=== PATIENT | female | born 1945 ===

== ENCOUNTER 2017-04-29 16:32 | Inpatient (IN) ==
[2017-04-29] MEDS ORDERED: PANTOPRAZOLE 40 MG VIAL IV STA (16:55)
[2017-04-29] MEDS ORDERED: ALUM/MAG/SIMETH/LIDO VISC 1:1 30 ML BOTTLE PO STA (16:55)
--- NOTE | 2017-04-29 17:00 | Emergency Department Note ---
Arrival - Arrival Chief Complaint: Chest Pain Stated Complaint: TRANSFER FROM [facility], [facility] ED Nursing Triage Note: PT TRANSFERRED FROM [facility] FOR EVALUATION OF ELEVATED TROPONIN (0.693) PT C/O CHEST PAIN SINCE LAST NIGHT THAT RADIATED INTO BOTH ARMS. Mode of Arrival: Stretcher Limitations: No Limitations Source: Patient Time Seen by Provider: 04/29/17 16:52 - History of Present Illness HPI Narrative: This 71-year-old female presents on transfer from [facility] where she presented with intermittent retrosternal chest pain and midepigastric pain radiating into both arms and necks associated with mild shortness of breath over the night. She presented to the [facility] ER where she was treated with aspirin, Nitrol paste, Lopressor, and Lovenox with amelioration the pain such that on presentation now she is pain-free. The patient has a history of being followed by Dr. Guido in the past for which she states she was told was anxiety related chest pain and never had a cardiac catheterization. She presents on transfer because of elevated troponin of 0.693. Currently she is free of symptoms. Onset (ago): hour(s) (Patient presents 18 hours post onset of symptoms) Allergies/Adverse Reactions: Allergies Allergy/AdvReac Type Severity Reaction Status Date / Time No Known Allergies Allergy Verified 04/29/17 16:45 Home Medications: Home Medications Medication Instructions Recorded Confirmed Type Aspirin [Ecotrin] 81 mg PO BEDTIME 01/26/16 04/29/17 History Cholecalciferol [Vitamin D3] 1,000 unit PO DAILY 01/26/16 04/29/17 History Gabapentin 100 mg PO QPM 01/26/16 04/29/17 History Levothyroxine Tab [Synthroid Tab] 75 mcg PO DAILY 01/26/16 04/29/17 History Lisinopril 40 mg PO DAILY 01/26/16 04/29/17 History Pravastatin [Pravachol] 40 mg PO BEDTIME 01/26/16 04/29/17 History Vit A/C/E AC/Znox/Cupric Oxide 2 each PO BID 01/26/16 04/29/17 History [Eye Vitamin-Minerals Tablet] glipiZIDE [Glipizide Xl] 2.5 mg PO DAILY 01/26/16 04/29/17 History hydroCHLOROthiazide 12.5 mg PO DAILY 01/26/16 04/29/17 History [Hydrochlorothiazide] metFORMIN [Glucophage] 500 mg PO BID 01/26/16 04/29/17 History Raloxifene [Evista] 60 mg PO DAILY 04/09/16 04/29/17 History Cyanocobalamin (Vitamin B-12) 1,000 mcg PO DAILY 04/29/17 04/29/17 History [Vitamin B-12] Naproxen [Naproxen Tab] 500 mg PO BID PRN 04/29/17 04/29/17 History Review of System - Review of System 12 point system: reviewed and no additional remarkable complaints except as stated - Review of System Constitutional: Present: as per HPI Respiratory: Present: as per HPI Cardiovascular: Present: as per HPI Gastrointestinal: Present: as per HPI Medical,Surgical,& Family Hx - Medical History Cardio: History of: Hypertension, Cardiovascular Problems (dr wu) Neurology: History of: Peripheral Neuropathy (feet) No history of: Seizures HEENT: History of: Eye Problem (glasses) Endocrine: History of: Diabetes Mellitus (NIDDM), Dyslipidemia Rheumatology: History of;: Rheumatoid Arthritis (left knee) Genitourinary: Comment Only: Recurring Urinary Tract Infections (pt has uti currently on antibiotics) Gastrointestinal: History of: GI Problems (screening) Musculoskeletal: History of: Musculoskeletal Problems (right hand tendonitis) - Surgical History Abdominal Surgeries: Surgical HX of: Cholecystectomy (1994), Colonoscopy Reproductive Surgeries: Surgical HX of;: Tubal Ligation - Social History Smoking Status: Never smoker Frequency of Alcohol Use: None Type of Drug Use: None Exam Physical Examination: GENERAL: Well developed, well nourished female in no acute distress. HEENT: Normocephalic. No trauma. Moist mucous membranes. EOMI. PERRLA. ENT NML NECK: Supple. No adenopathy. CARDIAC: Regular. No murmurs. Heart rate 76 CHEST: Clear to auscultation. No respiratory distress. O2 sat 96% ABDOMEN: Soft. Nontender. Active bowel sounds. EXTREMITIES: No trauma. Normal ROM. No pedal edema. SKIN: No diaphoresis. No rash. NEURO: Alert. Neuro intact no focal deficits. Vital Signs: Vital Signs Temperature 97.6 F 04/29/17 16:32 Pulse Rate 76 04/29/17 16:32 Respiratory Rate 18 04/29/17 16:56 Blood Pressure 144/83 04/29/17 16:32 O2 Sat by Pulse Oximetry 96 04/29/17 16:32 Course - Reevaluation(s) Reevaluation #1: I have discussed with patient and family the need for hospitalization to further evaluate her situation. - Consultations Consultation #1: Discussed with Dr. Valle who will see in the emergency room. Consultation #2: Dr. Valle to admit for catheterization in the morning. Results - Labs Labs: Lab per [facility] CK total 144 CK, CK-MB 4.0, troponin 0.693, BNP 366, glucose 136 , BUN 14, creatinine 0.8, potassium 4.2, sodium 140, white count 7400, hematocrit 40, normal clotting, d-dimer negative. Laboratory here is notable for significant bump in MD to 10.9 and troponin to 2.2. - Impressions EKG per [facility] sinus rhythm at 75 with normal [place] interval and QRS duration. Diffuse ST flattening. No acute injury pattern noted. EKG here: Sinus rhythm at 72 with normal [place] interval and QRS duration. Diffuse ST flattening but significant progression of T-wave inversion leads I and aVL. No acute injury pattern noted. - Diagnostic Findings Procedure: Chest x-ray: image reviewed by me, report reviewed by me (Negative chest) Disposition Clinical Impression: Non-STEMI PA Case discussed with: patient, patient's family Disposition: Still a Patient Condition: Guarded Time of Disposition: 18:43
[2017-04-29] MEDS ORDERED: PANTOPRAZOLE 40 MG VIAL IV ONE (17:07)
[2017-04-29] MEDS ORDERED: ALUM/MAG/SIMETH/LIDO VISC 1:1 30 ML BOTTLE PO ONE (17:07)
--- NOTE | 2017-04-29 17:19 | XRay Report ---
History is short of breath Comparison 04/29/2017 The heart is normal in size. The lungs are clear. Impression: No acute pathology seen. PROCEDURE INTERPRETED AT [facility] DEPARTMENT OF RADIOLOGY Final Report Signed by: Dr. Mare Wilson
--- NOTE | 2017-04-29 17:34 | EKG Report ---
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
[2017-04-29 18:05] LABS: CKMB % 5.4 %
[2017-04-29 18:07] LABS: Troponin I Only 2.2 NG/ML (0.00-0.045)
[2017-04-29] MEDS ORDERED: ONDANSETRON 4 MG/2 ML VIAL IV PRN (18:45)
[2017-04-29] MEDS ORDERED: HYDROmorphone 2 MG/1 ML VIAL IV PRN (18:45)
[2017-04-29] MEDS ORDERED: DEXTROSE 50% 25 GM/50 ML VIAL IV PRN (18:45)
[2017-04-29] MEDS ORDERED: GLUCAGON 1 MG VIAL IM PRN (18:45)
[2017-04-29] MEDS ORDERED: MAGNESIUM SULF RIDER 4 GM in PREMIX 1 EACH IV PRN (19:42)
[2017-04-29] MEDS ORDERED: ZALEPLON 5 MG CAPSULE PO PRN (19:42)
[2017-04-29] MEDS ORDERED: MAGNESIUM SULF RIDER 2 GM in PREMIX 1 EACH IV PRN (19:42)
[2017-04-29] MEDS ORDERED: ASPIRIN CHEW 81 MG TABLET PO ONE (19:52)
[2017-04-29] MEDS ORDERED: POTASSIUM CHLORIDE RIDER 10 MEQ in PREMIX 1 EACH IV PRN (19:53)
[2017-04-29] MEDS ORDERED: diphenhydrAMINE CAP 25 MG CAPSULE PO ONE (19:53)
[2017-04-29] MEDS ORDERED: DIAZEPAM 5 MG TABLET PO ONE (19:53)
--- NOTE | 2017-04-29 20:03 | Cardiology History & Physical ---
Assessment and Plan - Time spent with patient Time spent with patient: Greater than 30 minutes (1) Non-STEMI (non-ST elevated myocardial infarction) Status: Acute Assessment and plan: Given her chest pain and rising troponin, in addition to EKG changes, she has had a non-STEMI Plan/recommendation: Aspirin 325 mg 1 chewed now then 81 mg every morning Lovenox 60 mg subcu now and twice daily EKG every morning 3 Serial cardiac isoenzymes Add a bebb-[id number] Adding Nitropaste Continue proton pump inhibitor Precath orders Have Dr. Holden Lewis to do a heart cath on the patient and possible intervention in the a.m. Hold metformin Sliding-scale insulin Tylenol for headache which is probably due to the Nitropaste Recheck lipid profile in the a.m. Try to optimize on treatment Further plans depend on the results of the heart cath. The above was discussed with the patient and her . They voiced understanding and agree with the plan. Current Visit: Yes (2) Diabetes Status: Acute Current Visit: Yes (3) Hypertension Status: Acute Current Visit: Yes (4) Hypercholesterolemia Status: Acute Current Visit: Yes (5) Family history of coronary artery disease Status: Acute Current Visit: Yes (6) Elevated troponin Status: Acute Current Visit: Yes (7) Chest pain in adult Status: Acute Current Visit: Yes History of Present Illness Chief complaint: "I had bad heartburn in the upper chest for several minutes", with +cie"s History of present illness: Ms. Aviles is a 71 year old female PCP: [facility], sometimes sees Dr. Deborah Mercedes Machine Ii Trimmer: None-to be Dr. murphy Patient is 71. She had heartburn today. It did not go away easily. Nothing brought it on. Mylanta may or may not of help. It persisted so she came to [facility]. It was a pressure. It is in her upper chest and throat. Went to the back of her neck. It lasts for several minutes. Her EKG showed some changes of ischemia. Her troponin was 0.692. She was sent here for further evaluation. No associated shortness breath or diaphoresis. She did have associated nausea. Sometimes she has dysphagia to 1 pill. No odynophagia or GE reflux No bleeding in the pt's bowels, urine, or coughing up blood. No planned surgery for the next year. No contraindication to anticoagulation for a year. Past medical history Diabetes Hypertension High cholesterol-is on pravastatin Does not smoke cigarettes or drink alcohol There is a family history of coronary disease in her father and her sister. Also some diabetes SPH: Yes, yes, yes and yes. OG Home Medications Medication Instructions Recorded Confirmed Type Aspirin [Ecotrin] 81 mg PO BEDTIME 01/26/16 04/29/17 History Cholecalciferol [Vitamin D3] 1,000 unit PO DAILY 01/26/16 04/29/17 History Gabapentin 100 mg PO QPM 01/26/16 04/29/17 History Levothyroxine Tab [Synthroid Tab] 75 mcg PO DAILY 01/26/16 04/29/17 History Lisinopril 40 mg PO DAILY 01/26/16 04/29/17 History Pravastatin [Pravachol] 40 mg PO BEDTIME 01/26/16 04/29/17 History Vit A/C/E AC/Znox/Cupric Oxide 2 each PO BID 01/26/16 04/29/17 History [Eye Vitamin-Minerals Tablet] glipiZIDE [Glipizide Xl] 2.5 mg PO DAILY 01/26/16 04/29/17 History hydroCHLOROthiazide 12.5 mg PO DAILY 01/26/16 04/29/17 History [Hydrochlorothiazide] metFORMIN [Glucophage] 500 mg PO BID 01/26/16 04/29/17 History Raloxifene [Evista] 60 mg PO DAILY 04/09/16 04/29/17 History Cyanocobalamin (Vitamin B-12) 1,000 mcg PO DAILY 04/29/17 04/29/17 History [Vitamin B-12] Naproxen [Naproxen Tab] 500 mg PO BID PRN 04/29/17 04/29/17 History Allergies Allergy/AdvReac Type Severity Reaction Status Date / Time No Known Allergies Allergy Verified 04/29/17 16:45 12 point system: reviewed and no additional remarkable complaints except as stated (A 12 point review of systems is negative except for as mentioned in HPI. ) Medical,Surgical,& Family Hx - Medical History Cardio: History of: Hypertension, Cardiovascular Problems (dr wu) Neurology: History of: Peripheral Neuropathy (feet) No history of: Seizures HEENT: History of: Eye Problem (glasses) Endocrine: History of: Diabetes Mellitus (NIDDM), Dyslipidemia Rheumatology: History of;: Rheumatoid Arthritis (left knee) Genitourinary: Comment Only: Recurring Urinary Tract Infections (pt has uti currently on antibiotics) Gastrointestinal: History of: GI Problems (screening) Musculoskeletal: History of: Musculoskeletal Problems (right hand tendonitis) - Surgical History Abdominal Surgeries: Surgical HX of: Cholecystectomy (1994), Colonoscopy Reproductive Surgeries: Surgical HX of;: Tubal Ligation - Social History Smoking Status: Never smoker Frequency of Alcohol Use: None Type of Drug Use: None Cardiology Physical Exam - Constitutional Vitals: Vital Signs Temp Pulse Resp BP Pulse Ox 97.6 F 74 13 135/75 100 04/29/17 16:32 04/29/17 19:15 04/29/17 19:15 04/29/17 19:15 04/29/17 19:15 Intake and Output 04/29/17 04/29/17 04/29/17 07:59 15:59 23:59 Other: Weight 64 kg Patient Weight 04/29/17 23:59 Weight 64 kg Exam: HEENT: Pupils equal, reactive to light and accommodation Neck: NoJVD or bruit Lungs clear to auscultation Heart: Regular rhythm rate with normal S1 and S2. Apical S4 Abdomen: No hepatosplenomegaly Spine/extremities: No clubbing, cyanosis, or edema Neuro: Nonfocal Psych: No depression or anxiety Femoral pulses are 4+. Foot pulses are 3+. Result/EKG - Labs Lab Results: I have reviewed the past 24 hour labs Labs: Laboratory Results - last 24 hr 04/29/17 17:24 Total Creatine Kinase 202 H CK-MB (CK-2) 10.9 H CK and CKMB Interp 5.4 Troponin I 2.200 H - Diagnostic Findings Procedure: Chest x-ray: report reviewed by me (Unremarkable) - EKG EKG results: interpreted by me
--- NOTE | 2017-04-29 20:09 | History and Physical Update ---
Sedation H&P Update - History and Physical H&P was reviewed, the patient examined and there: are no changes in the patients condition since last H&P was completed. - Dictation Physical: refer to H&P completed by admitting physician - Physical Exam Mental Status: alert and oriented Heart: regular rate and rhythm Lung: clear to auscultation Abdomen: within normal limits Vitals: within normal limits - Sedation Plan for Sedation: minimal Patient Consent: Procedure disscussed with patient and patinet has consented., Risks and benefits were discussed with patient,including infection,, bleeding, injury to surrounding structures, seizure, temporary nerve, Patient understands and accepts potential risks/benefits and agrees to, proceed. ASA Class: II Airway Assessment: Class II: Soft palate, uvula, fauces visible
[2017-04-29 20:47] LABS: Bilirubin,Total 0.6 MG/DL (0.2-1.0); Magnesium 2.3 MG/DL (1.8-2.4); Potassium 3.7 MMOL/L (3.5-5.1); Total Protein 7.2 G/DL (6.4-8.3)
[2017-04-29 20:50] LABS: Basophils % 0.4 % (0.0-0.8); Eosinophils # 0.1 10*3/uL (0.0-0.87); Eosinophils % 1.2 % (0.00-10.9); Hematocrit 39.6 VOL% (35.7-47.0); Hemoglobin 13.6 GM/DL (12.0-16.0); Immature Granulocytes % 0.2 %; Immature Granulocytes Absolute 0.02 #; Lymphocytes # 1.8 10*3/uL (1.4-4.0); Lymphocytes % 21.7 % (21.3-54.2); Mean Corpuscular HGB Conc 34.3 GM/DL (32-36); Mean Corpuscular Hemoglobin 31 PG (27-34); Mean Corpuscular Volume 89.4 FL (87-102); Mean Platelet Volume 10.6 FL (9.6-12.0); Monocytes # 0.6 10*3/uL (0.11-0.8); Monocytes % 7.3 % (1.7-12.7); Neutrophils # 5.7 10*3/uL (1.4-7.4); Neutrophils % 69.2 % (38.7-73.9); Platelet Count 264 T/CUMM (130-400); Red Blood Count 4.43 MC/CUMM (3.8-5.5); Red Cell Distribution Width 12.4 % (9.3-17.3); White Blood Count 8.3 T/CUMM (4-12)
[2017-04-29 21:40] LABS: CKMB % 6.1 %
[2017-04-29 21:45] LABS: Troponin I Only 3.49 NG/ML (0.00-0.045)
[2017-04-29] MEDS: ENOXAPARIN 60 MG/0.6 ML SYRINGE SUBCUT SCH (22:49)
[2017-04-29] MEDS: MULTIVITAMIN (OCUVITE) TABLET PO SCH (22:50)
[2017-04-29] MEDS: CARVEDILOL 3.125 MG TABLET PO SCH (22:52)
[2017-04-29] MEDS: SODIUM CHLORIDE 0.9% 1,000 ML IV SCH (22:52)
[2017-04-29] MEDS: PRAVASTATIN 40 MG TABLET PO SCH (22:52)
[2017-04-29] MEDS: METOCLOPRAMIDE 10 MG/2 ML VIAL IV SCH (22:53)
[2017-04-29] MEDS: ACETAMINOPHEN 325 MG TABLET PO SCH (22:54)
[2017-04-30] MEDS: INSULIN REGULAR 100 UNIT/ML SUBCUT SCH ×4 (02:26→18:34)
[2017-04-30] MEDS: NITROGLYCERIN 2% OINT 1 INCH/GM PACK TOP SCH ×4 (02:27→18:34)
[2017-04-30] MEDS: METOCLOPRAMIDE 10 MG/2 ML VIAL IV SCH ×4 (04:18→19:01)
[2017-04-30] MEDS: ACETAMINOPHEN 325 MG TABLET PO SCH ×3 (04:19→21:36)
[2017-04-30] MEDS: CARVEDILOL 3.125 MG TABLET PO SCH ×4 (04:20→21:36)
[2017-04-30 06:18] LABS: CKMB % 6.6 %
[2017-04-30 06:22] LABS: Troponin I Only 4.12 NG/ML (0.00-0.045)
[2017-04-30 06:25] LABS: Risk Ratio 4.29; VLDL CHOLESTEROL 34.6 MG/DL
[2017-04-30] MEDS ORDERED: HEPARIN/NACL 0.9% 2 UNITS/ML 1,000 ML IV ONE (06:48)
[2017-04-30] MEDS ORDERED: ENOXAPARIN 60 MG/0.6 ML SYRINGE SUBCUT SCH (07:00)
[2017-04-30] MEDS ORDERED: diphenhydrAMINE CAP 25 MG CAPSULE PO ONE (07:00)
[2017-04-30] MEDS ORDERED: DIAZEPAM 5 MG TABLET PO ONE (07:00)
[2017-04-30] MEDS: ENOXAPARIN 60 MG/0.6 ML SYRINGE SUBCUT SCH (07:11)
[2017-04-30] MEDS: ASPIRIN CHEW 81 MG TABLET PO SCH (07:12)
--- NOTE | 2017-04-30 07:30 | EKG Report ---
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
[2017-04-30] MEDS ORDERED: MIDAZOLAM 2 MG/2 ML VIAL ONE (07:43)
[2017-04-30] MEDS ORDERED: LIDOCAINE 1%/EPI INJ 20 ML VIAL ONE (07:43)
[2017-04-30] MEDS ORDERED: fentaNYL 100 MCG/2 ML VIAL ONE (07:43)
[2017-04-30] MEDS: SODIUM CHLORIDE 0.9% 1,000 ML IV SCH ×2 (07:47→09:41)
--- NOTE | 2017-04-30 07:59 | History and Physical Update ---
Sedation H&P Update - History and Physical H&P was reviewed, the patient examined and there: are no changes in the patients condition since last H&P was completed. - Dictation Physical: refer to scanned H&P - Sedation Plan for Sedation: moderate Patient Consent: Procedure disscussed with patient and patinet has consented., Risks and benefits were discussed with patient,including infection,, bleeding, injury to surrounding structures, seizure, temporary nerve, Patient understands and accepts potential risks/benefits and agrees to, proceed. ASA Class: III Airway Assessment: Class III: Soft palate, base of uvula visible
[2017-04-30] MEDS ORDERED: TIROFIBAN 5,000 MCG/100 ML PREMIX IV ONE (08:20)
[2017-04-30] MEDS ORDERED: TIROFIBAN 5,000 MCG/100 ML PREMIX IV SCH (08:29)
[2017-04-30] MEDS ORDERED: TICAGRELOR 90 MG TABLET ONE (08:32)
[2017-04-30] MEDS ORDERED: NITROGLYCERIN DRIP 50 MG/250 ML BOTTLE IV ONE (08:36)
[2017-04-30] MEDS ORDERED: RALOXIFENE 60 MG TABLET PO SCH (09:00)
--- NOTE | 2017-04-30 09:30 | Cardiac Catheterization ---
Date of Procedure:: 04/30/17 Pre-op Diagnosis: Acute coronary syndrome Post-op diagnosis: same Procedure: 76-year-old lady who presents with an acute coronary syndrome. She has unstable chest discomfort with EKG changes consistent with anterior ischemia. She is for diagnostic evaluation intervention if indicated Procedure performed: 1. Left heart catheterization 2. Coronary angiography 3. Left ventriculography 4. Percutaneous intervention to the LAD with a 2.5 x 23 mm Zions drug-eluting stent to the mid LAD with a good angiographic result 5. Percutaneous intervention of the proximal LAD with a 3.0 x 12 mm Zions drug- eluting stent to the proximal edge of the mid LAD stent with a good angiographic result 6. Percutaneous intervention to the mid right coronary artery with a 2.25 x 23 mm Zions drug-eluting stent with a good angiographic result 7. Angio-Seal closure right femoral arteriotomy site Description of procedure: After obtaining informed consent the patient brought to the Analysis Consultant of the right groin was prepped and draped in the usual sterile manner. Using intravenous sedation with anesthesia needle was inserted right femoral artery without difficulty 6 Sami sheath was positioned without difficulty. A Ave left diagnostic catheter was used to opacify the left coronary and multiple angulations. After adequate angiograms left coronary obtained this catheter was withdrawn and in a.m. Gonzalo right coronary catheter was advanced over guidewire under fluoroscopic control using her where angiography the right coronary artery was undertaken multiple views. This catheter was withdrawn and a pigtail ventriculographic catheter was advanced over guidewire under fluoroscopic control ascending aorta where it was passed across the aortic valve and ventriculography was obtained in the LEIGH projection. 35 cc of contrast were injected at 12 cc/s. After completion of ventriculography this catheter was withdrawn under hemodynamic monitoring and removed. At this point he like to proceed with percutaneous intervention A EBU 3.5 catheter was advanced over guidewire under fluoroscopic control using her where the left coronary was engaged. An 014 BMW wire was advanced to the distal LAD and a 2.0 x 20 mm apex balloon was advanced to the area stenosis inflated single single time to 6 nimisha. A second inflation was taken to 10 nimisha. At this point this balloon was removed and a 2.5 x 23 mm Zions Alpine drug- eluting stent was advanced to the mid LAD and deployed at a maximum 10 nimisha. This balloon was then removed and there was good apposition of the stent to the vessel wall with JOSE ARMANDO grade II flow noted. The more proximal lesion was then treated with a 3.0 x 12 mm Zions Alpine balloon inflated to maximum 12 nimisha. There appeared to be no reflow at this point. The patient was given a 200 mcg intracoronary nitroglycerin bolus and there was significant improvement in blood flow and appear to be improving markedly at final injection. There appear to be good resolution of the stenoses with JOSE ARMANDO grade III flow down the vessel noted end procedure. This point we turned our attention to the right coronary artery. A hockey stick 1 guide was advanced over guidewire under fluoroscopic control using her where the right coronary was engaged. An 014 BMW wire was advanced to the distal right and a 2.0 x 20 mm apex balloon was advanced to the area of stenosis inflated a single time to 10 nimisha. This balloon was then removed and a 2.25 x 23 mm Zions Alpine stent was advanced to the area stenosis and deployed to a maximum 10 nimisha. There was good resolution of the stenosis with good stepup and stepdown both proximal and distal. There was JOSE ARMANDO grade III flow down the vessel noted end procedure. At this point the patient underwent right femoral sheath angiography which demonstrated anatomy appropriate for Angio-Seal closure. All balloons and wires have been removed from the right coronary guide. The right coronary guide had been removed from the sheath. Patient underwent Angio-Seal closure of the right femoral arteriotomy site without difficulty and good hemostasis was obtained. Patient was transferred to her [place] having suffered no significant immediate complications. Hemodynamic please see accompanying data sheet Coronary arteriography: Left coronary artery: Left main coronary artery is well-developed and free of significant obstructing lesions. The circumflex coronary is a large dominant vessel that possesses several areas of 50-70% stenosis. The first is an area just beyond the takeoff of second marginal branch. The first marginal has another area of 50-70% stenosis noted at its origin. Left anterior descending coronary is a large vessel extends around the apex of the ventricle. There is a complex 99% area stenosis in the midportion of the LAD which is long and angulated. There is JOSE ARMANDO grade I to II flow down the vessel noted. The distal LAD appears to be free of significant obstructing lesions. Right coronary artery: Right coronary is a large nondominant vessel and has a tubular 99% area stenosis in its midportion. The distal vessel appears to be normal size without evidence of significant disease noted distally. Left ventriculography: After injection of contrast in the left ventricle is known to be mildly enlarged with marked distal anterior akinesis and apical hypokinesis. Overall ejection fraction measured in the 35-40% range. Mitral and aortic structures appear normal by ventriculography. Percutaneous intervention: After the above-described procedure of the left coronary/LAD there appeared to be good resolution of the stenosis with JOSE ARMANDO grade III flow noted at the end of the procedure. This required intracoronary nitroglycerin to facilitate distal vasodilatation to improve flow. The patient remained clinically stable and it appeared to be improving at the end of the procedure is noted. The percutaneous intervention the right coronary was uncomplicated and there was good resolution of the stenosis with JOSE ARMANDO grade III flow down the vessel noted. Right femoral sheath angiography: After injection of contrast into the right femoral arterial sheath it appears to enter the common femoral above the bifurcation. No evidence of significant stenosis of the distal iliac, common femoral or bifurcation be noted based on this limited angiographic study. Conclusions: Successful percutaneous intervention of a mid LAD stenosis as outlined above with a 3.0 x 12 mm and a 2.5 x 23 mm Zions drug-eluting stent to the mid LAD with a good angiographic result. There was JOSE ARMANDO grade II to III flow noted post stent deployment which improved after intracoronary nitroglycerin. This looks most like a no reflow but appear to be improving markedly at the end the procedure. The patient also underwent percutaneous intervention of the right coronary with a 2.25 x 23 mm Zions drug-eluting stent. Patient tolerated procedure well and will be watched closely in the CCU setting. Anesthesia: moderate conscious sedation Surgeon / Physician: Robbie Lewis Estimated blood loss: minimal Specimens: none sent Condition: stable - Medications / Follow-up
--- NOTE | 2017-04-30 12:05 | EKG Report ---
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
[2017-04-30] MEDS: hydroCHLOROthiazide 12.5 MG CAPSULE PO SCH (12:55)
[2017-04-30] MEDS: CHOLECALCIFEROL 1,000 UNIT TABLET PO SCH (12:56)
[2017-04-30] MEDS: MULTIVITAMIN (OCUVITE) TABLET PO SCH ×2 (12:56→21:36)
[2017-04-30] MEDS: CYANOCOBALAMIN 500 MCG TABLET PO SCH (12:56)
[2017-04-30] MEDS: LEVOTHYROXINE 75 MCG TABLET PO SCH (12:56)
[2017-04-30 13:00] LABS: CKMB % 6.1 %
[2017-04-30 13:02] LABS: Troponin I Only 4.92 NG/ML (0.00-0.045)
--- NOTE | 2017-04-30 18:44 | ECHO Report ---
Stefan Beti Exam Date: 04/30/2017 10:45 Referring Physician: Technologist: rm Houser ARDMS, RVT Age: 71 Ht (in): 61 Wt (lb): 140 Gender: F Exam Location: [facility] Echo Indications: Non-ST elevation (NSTEMI) myocardial infarction, Chest pain, unspecified, Essential (primary) hypertension, EKG changes, NIDDM, Elevated troponin, Hypercholesterolemia, S/P Cath with stent BP: 122 / 61 HR: 57 Rhythm: Sinus Technical Quality: Good IMPRESSIONS Mild left ventricular hypertrophy. Left ventricular ejection fraction is estimated at 50 %, apical HK. The right atrium is mildly enlarged. Mild atrial enlargement in apical view (elongated LA). Trace mitral valve regurgitation. Aortic valve sclerosis without stenosis. Trace aortic valve regurgitation. Trace tricuspid valve regurgitation. Tricuspid regurgitation velocities suggest a PAP of 32 mmHg. MEASUREMENTS (Male / Female) Normal Values 2D ECHO LV Diastolic Diameter PLAX 4.1 cm 4.2 - 5.9 / 3.9 - 5.3 cm LV Systolic Diameter PLAX 3.3 cm LV Fractional Shortening PLAX 19.6 % IVS Diastolic Thickness 1.2 cm 0.6 - 1.0 / 0.6 - 0.9 cm LVPW Diastolic Thickness 1.1 cm 0.6 - 1.0 / 0.6 - 0.9 cm RV Internal Dim ED PLAX 2.8 cm Aortic Root Diameter 3.2 cm LA Systolic Diameter LX 2.4 cm 3.0 - 4.0 / 2.7 - 3.8 cm DOPPLER TR Peak Velocity 233.0 cm/s TR Peak Gradient 21.7 mmHg FINDINGS Left Ventricle Normal left ventricular cavity size. Mild left ventricular hypertrophy. Left ventricular ejection fraction is estimated at 50 %, apical HK. Right Ventricle The right ventricle is normal in size and function. Right Atrium The right atrium is mildly enlarged. Left Atrium Mild atrial enlargement in apical view (elongated LA). Mitral Valve Morphologically normal mitral valve. Trace mitral valve regurgitation. Aortic Valve Aortic valve sclerosis without stenosis. Trace aortic valve regurgitation. Tricuspid Valve Morphologically normal tricuspid valve. Trace tricuspid valve regurgitation. Tricuspid regurgitation velocities suggest a PAP of 32 mmHg. Pulmonic Valve Morphologically normal pulmonic valve without significant stenosis. There is no pulmonic regurgitation. Pericardium Normal pericardium without effusion. Aorta Normal ascending aorta dimension. Zander Valle MD (Electronically Signed) Final Date: 30 April 2017 18:43
[2017-04-30] MEDS: PANTOPRAZOLE 40 MG TABLET PO SCH (19:01)
[2017-04-30] MEDS: GABAPENTIN 100 MG CAPSULE PO SCH (19:01)
[2017-04-30] MEDS: PRAVASTATIN 40 MG TABLET PO SCH (21:36)
[2017-05-01] MEDS: NITROGLYCERIN 2% OINT 1 INCH/GM PACK TOP SCH ×2 (00:34→06:23)
[2017-05-01] MEDS: INSULIN REGULAR 100 UNIT/ML SUBCUT SCH ×4 (00:34→18:12)
[2017-05-01] MEDS: METOCLOPRAMIDE 10 MG/2 ML VIAL IV SCH ×4 (01:41→18:41)
[2017-05-01] MEDS: CARVEDILOL 3.125 MG TABLET PO SCH ×4 (03:25→21:58)
[2017-05-01 05:14] LABS: Basophils % 0.1 % (0.0-0.8); Eosinophils # 0.2 10*3/uL (0.0-0.87); Eosinophils % 1.7 % (0.00-10.9); Immature Granulocytes % 0.5 %; Immature Granulocytes Absolute 0.04 #; Lymphocytes # 1.3 10*3/uL (1.4-4.0); Lymphocytes % 14.7 % (21.3-54.2); Mean Corpuscular HGB Conc 35.1 GM/DL (32-36); Mean Corpuscular Hemoglobin 31 PG (27-34); Mean Corpuscular Volume 87.7 FL (87-102); Mean Platelet Volume 9.7 FL (9.6-12.0); Monocytes # 0.7 10*3/uL (0.11-0.8); Monocytes % 7.6 % (1.7-12.7); Neutrophils # 6.7 10*3/uL (1.4-7.4); Neutrophils % 75.4 % (38.7-73.9); Platelet Count 238 T/CUMM (130-400); Red Blood Count 4.22 MC/CUMM (3.8-5.5); Red Cell Distribution Width 12.2 % (9.3-17.3); White Blood Count 8.9 T/CUMM (4-12)
[2017-05-01 05:51] LABS: Calcium 7.8 MG/DL (8.5-10.1); Magnesium 2.1 MG/DL (1.8-2.4); Osmolality,Calculated 266.4 MOS/KG (273-304); Potassium 3.7 MMOL/L (3.5-5.1)
--- NOTE | 2017-05-01 07:11 | EKG Report ---
Stationary ECG Study [facility] Test Date: 05/01/2017 7:10:39 AM Pat Name: MALATHI QUINTANILLA Department: Room: 123 Gender: F Service Center Assistant: CALEB : 1945 Requested by: Zander Valle Order Number: [id number] Reading MD: JAIDA DIAZ Intervals [place] Rate: 58 P: 81 WV: 188 QRS: 36 QRSD: 88 T: 155 QT: 521 QTc: 518 Interpretive Statements SINUS RHYTHM MARKED T-WAVE ABNORMALITY, CONSIDER ANTEROLATERAL ISCHEMIA Electronically Signed On 05-01-17 17:08:41 CDT by JAIDA DIAZ [email or web address]
[2017-05-01] MEDS ORDERED: FUROSEMIDE 40 MG/4 ML VIAL IV ONE (08:37)
[2017-05-01] MEDS ORDERED: POTASSIUM CHLORIDE 20 MEQ TABLET PO ONE (08:37)
[2017-05-01] MEDS: TICAGRELOR 90 MG TABLET PO SCH ×2 (08:58→21:58)
[2017-05-01] MEDS: CYANOCOBALAMIN 500 MCG TABLET PO SCH (08:58)
[2017-05-01] MEDS: PANTOPRAZOLE 40 MG TABLET PO SCH (08:58)
[2017-05-01] MEDS: CHOLECALCIFEROL 1,000 UNIT TABLET PO SCH (08:58)
[2017-05-01] MEDS: ASPIRIN EC 81 MG TABLET PO SCH (08:58)
[2017-05-01] MEDS: MULTIVITAMIN (OCUVITE) TABLET PO SCH ×2 (08:58→21:58)
[2017-05-01] MEDS: LEVOTHYROXINE 75 MCG TABLET PO SCH (08:58)
[2017-05-01] MEDS: hydroCHLOROthiazide 12.5 MG CAPSULE PO SCH (08:59)
[2017-05-01] MEDS: ACETAMINOPHEN 325 MG TABLET PO SCH ×2 (08:59→21:58)
[2017-05-01] MEDS: LISINOPRIL 5 MG TABLET PO SCH (09:05)
[2017-05-01] MEDS: ASPIRIN CHEW 81 MG TABLET PO SCH (09:11)
--- NOTE | 2017-05-01 10:32 | Cardiology Progress Note ---
<Reva Hilario E - Last Filed: 05/01/17 10:23> Assessment and Plan - Time spent with patient Time spent with patient: Less than 30 minutes (1) Non-STEMI (non-ST elevated myocardial infarction) Status: Acute Assessment and plan: See plan of care listed below. Current Visit: Yes (2) Diabetes Status: Chronic Assessment and plan: See plan of care listed below. Current Visit: Yes (3) Hypertension Status: Chronic Assessment and plan: See plan of care listed below. Current Visit: Yes (4) Hypercholesterolemia Status: Chronic Assessment and plan: See plan of care listed below. Current Visit: Yes (5) Family history of coronary artery disease Status: Chronic Assessment and plan: See plan of care listed below. 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 CAPO ROSALES Ms. Aviles is a 71-year-old female who presented to the hospital from [facility] with complaints of chest pressure. She was diagnosed with non-ST elevated myocardial infarction in was noted to have an elevated troponin of 4.52 and EKG changes consistent with anterior ischemia. She was taken for left heart catheterization by Dr. Lewis on 04/30/2017 and was found to have 9% stenosis in the midportion of the LAD. She received drug- eluting stent to the mid LAD and the proximal edge of the mid LAD with good angiographic results. She was observed overnight in the CCU. Post-cath, her troponin has risen and is 5.54 today. She still complains of some mild shortness of breath. Her Fletcher catheter has been discontinued. We will give her a one-time dose of Lasix IV and monitor her for an additional day on the telemetry unit prior to discharge. Hopefully her shortness of breath is not related to her starting Brilinta. We will continue to monitor. Her vital signs are stable. Lab work is stable. She will be able to resume her metformin on 05/03/2017. ASSESSMENT/PLAN: 1. NSTEMI -patient is status post PCI of the LAD on 04/30/[address] Lewis. We will continue her dual antiplatelet therapy with aspirin and Brilinta. She is also on beta-ginger, LETY inhibitor, and statin. She will be observed for an additional night and anticipate discharge home tomorrow morning. 2. DIABETES -continue current plan with sliding scale insulin. She will be able to resume her metformin on Saturday, and . 3. HYPERTENSION -currently well controlled. Continue current plan of care, monitor and adjust accordingly. 4. HYPERCHOLESTEROLEMIA -continue lipid-lowering agent. 5. FAMILY HISTORY OF CAD Exam (Progress Note) - Constitutional Vitals: Period Temp Pulse Resp BP Sys/Damian Pulse Ox Last 24 Hr 97.0 F-98.3 F 53-87 10-26 102-135/50-79 93-99 Exam: General: Present: Appears Well, No Apparent Distress. Pleasant and cooperative. Appears comfortable. HEENT: Present: PERRL, Normocephaly, atraumatic. Mucus Membranes Moist. No jaundice noted. Conjunctiva moist and clear, sclerae anicteric Neck: Present: Supple Neck, Midline Trachea, No Masses, No Bruit, No tenderness Cardiac: Present: Regular Rate and Rhythm, No Murmur Lungs: Present: Clear to auscultation bilaterally, no wheeze, rhonchi, rales. Neuro: Present: Awake, alert, and oriented x3. Moves all extremities well without hemiparesis or paralysis. Grossly Intact. Absent: Resting Tremor, Essential Tremor Abdomen: Present: Soft, Active Bowel Sounds, No Masses, Non-Tender, nondistended. No abdominal bruit or thrill noted. Skin: Present: Clear. Absent: Rash, No skin breakdown. Back: Normal inspection, no vertebral tenderness. Musculoskeletal: Present: No Fluid Collection, No Pain, Normal Range of Motion Extremities: Present: Normal Gait, No Clubbing, No Cyanosis, Upper Extr. Pulses 2+, Lower Extr. Pulses 2+, No edema. Capillary refill less than 3 seconds. Right groin: Dressing dry and intact with quarter sized area of blood-tinged drainage noted. No active bleeding, hematoma, or bruit at site. Femoral pulses 3+. Distal pulses present and palpable bilaterally. Result/EKG - Labs CBC & BMP: 05/01/17 04:32 05/01/17 04:32 Lab Results: I have reviewed the past 24 hour labs Labs: Laboratory Results - last 24 hr 04/30/17 04/30/17 04/30/17 09:52 11:57 12:03 WBC RBC Hgb Hct MCV MCH MCHC RDW Plt Count MPV Neut % (Auto) Lymph % (Auto) [place] % (Auto) Eos % (Auto) Baso % (Auto) Neut # (Auto) Lymph # (Auto) [place] # (Auto) Eos # (Auto) Baso # (Auto) Immature Gran % Nucleated RBC % Immature Gran # Nucleated RBCs # Sodium Potassium Chloride Carbon Dioxide Anion Gap BUN Creatinine GFR Calculation BUN/Creatinine Ratio Glucose POC Glucose 179 H Calculated Osmolality Calcium Magnesium Total Creatine Kinase 281 H CK-MB (CK-2) 17.2 H CK and CKMB Interp 6.1 Troponin I 4.520 H 4.920 H 04/30/17 04/30/17 05/01/17 18:26 18:37 00:24 WBC RBC Hgb Hct MCV MCH MCHC RDW Plt Count MPV Neut % (Auto) Lymph % (Auto) [place] % (Auto) Eos % (Auto) Baso % (Auto) Neut # (Auto) Lymph # (Auto) [place] # (Auto) Eos # (Auto) Baso # (Auto) Immature Gran % Nucleated RBC % Immature Gran # Nucleated RBCs # Sodium Potassium Chloride Carbon Dioxide Anion Gap BUN Creatinine GFR Calculation BUN/Creatinine Ratio Glucose POC Glucose 221 H 101 Calculated Osmolality Calcium Magnesium Total Creatine Kinase CK-MB (CK-2) CK and CKMB Interp Troponin I 5.370 H 05/01/17 05/01/17 05/01/17 04:32 04:32 06:09 WBC 8.9 RBC 4.22 Hgb 13.0 Hct 37.0 MCV 87.7 MCH 31 MCHC 35.1 RDW 12.2 Plt Count 238 MPV 9.7 Neut % (Auto) 75.4 H Lymph % (Auto) 14.7 L [place] % (Auto) 7.6 Eos % (Auto) 1.7 Baso % (Auto) 0.1 Neut # (Auto) 6.7 Lymph # (Auto) 1.3 L [place] # (Auto) 0.7 Eos # (Auto) 0.2 Baso # (Auto) 0.0 Immature Gran % 0.5 Nucleated RBC % 0.0 Immature Gran # 0.04 Nucleated RBCs # 0.00 Sodium 133 L Potassium 3.7 Chloride 97 L Carbon Dioxide 27 Anion Gap 12.7 BUN 9 Creatinine 0.50 L GFR Calculation 91 BUN/Creatinine Ratio 18.00 Glucose 139 H POC Glucose 149 H Calculated Osmolality 266.4 L Calcium 7.8 L Magnesium 2.1 Total Creatine Kinase CK-MB (CK-2) CK and CKMB Interp Troponin I 05/01/17 08:34 WBC RBC Hgb Hct MCV MCH MCHC RDW Plt Count MPV Neut % (Auto) Lymph % (Auto) [place] % (Auto) Eos % (Auto) Baso % (Auto) Neut # (Auto) Lymph # (Auto) [place] # (Auto) Eos # (Auto) Baso # (Auto) Immature Gran % Nucleated RBC % Immature Gran # Nucleated RBCs # Sodium Potassium Chloride Carbon Dioxide Anion Gap BUN Creatinine GFR Calculation BUN/Creatinine Ratio Glucose POC Glucose Calculated Osmolality Calcium Magnesium Total Creatine Kinase CK-MB (CK-2) CK and CKMB Interp Troponin I 5.540 H - EKG EKG results: interpreted by me, sinus rhythm Quality Measures - VTE Contraindication to Pharmacological VTE Prophylaxis: High Risk of Bleeding Specialty Discharge - Follow Up or Referrals Follow up with: Robbie Lewis MD [Physician] - 2 Weeks <Robbie Lewis - Last Filed: 05/01/17 15:59> Exam (Progress Note) - Constitutional Vitals: Period Temp Pulse Resp BP Sys/Damian Pulse Ox Last 24 Hr 97.4 F-98.3 F 58-87 12-22 73-131/50-79 93-100 Result/EKG - Labs CBC & BMP: 05/01/17 04:32 05/01/17 04:32 Labs: Laboratory Results - last 24 hr 04/30/17 04/30/17 05/01/17 18:26 18:37 00:24 WBC RBC Hgb Hct MCV MCH MCHC RDW Plt Count MPV Neut % (Auto) Lymph % (Auto) [place] % (Auto) Eos % (Auto) Baso % (Auto) Neut # (Auto) Lymph # (Auto) [place] # (Auto) Eos # (Auto) Baso # (Auto) Immature Gran % Nucleated RBC % Immature Gran # Nucleated RBCs # Sodium Potassium Chloride Carbon Dioxide Anion Gap BUN Creatinine GFR Calculation BUN/Creatinine Ratio Glucose POC Glucose 221 H 101 Calculated Osmolality Calcium Magnesium Troponin I 5.370 H 05/01/17 05/01/17 05/01/17 04:32 04:32 06:09 WBC 8.9 RBC 4.22 Hgb 13.0 Hct 37.0 MCV 87.7 MCH 31 MCHC 35.1 RDW 12.2 Plt Count 238 MPV 9.7 Neut % (Auto) 75.4 H Lymph % (Auto) 14.7 L [place] % (Auto) 7.6 Eos % (Auto) 1.7 Baso % (Auto) 0.1 Neut # (Auto) 6.7 Lymph # (Auto) 1.3 L [place] # (Auto) 0.7 Eos # (Auto) 0.2 Baso # (Auto) 0.0 Immature Gran % 0.5 Nucleated RBC % 0.0 Immature Gran # 0.04 Nucleated RBCs # 0.00 Sodium 133 L Potassium 3.7 Chloride 97 L Carbon Dioxide 27 Anion Gap 12.7 BUN 9 Creatinine 0.50 L GFR Calculation 91 BUN/Creatinine Ratio 18.00 Glucose 139 H POC Glucose 149 H Calculated Osmolality 266.4 L Calcium 7.8 L Magnesium 2.1 Troponin I 05/01/17 05/01/17 08:34 11:22 WBC RBC Hgb Hct MCV MCH MCHC RDW Plt Count MPV Neut % (Auto) Lymph % (Auto) [place] % (Auto) Eos % (Auto) Baso % (Auto) Neut # (Auto) Lymph # (Auto) [place] # (Auto) Eos # (Auto) Baso # (Auto) Immature Gran % Nucleated RBC % Immature Gran # Nucleated RBCs # Sodium Potassium Chloride Carbon Dioxide Anion Gap BUN Creatinine GFR Calculation BUN/Creatinine Ratio Glucose POC Glucose 218 H Calculated Osmolality Calcium Magnesium Troponin I 5.540 H
[2017-05-01] MEDS ORDERED: SODIUM CHLORIDE 0.9% 500 ML IV ONE (11:00)
[2017-05-01] MEDS: GABAPENTIN 100 MG CAPSULE PO SCH (18:41)
[2017-05-01] MEDS: PRAVASTATIN 40 MG TABLET PO SCH (21:58)
[2017-05-02] MEDS: METOCLOPRAMIDE 10 MG/2 ML VIAL IV SCH ×3 (01:17→13:00)
[2017-05-02] MEDS: INSULIN REGULAR 100 UNIT/ML SUBCUT SCH ×3 (01:17→14:13)
[2017-05-02] MEDS: CARVEDILOL 3.125 MG TABLET PO SCH ×2 (03:59→09:14)
[2017-05-02 05:30] LABS: Basophils % 0.2 % (0.0-0.8); Eosinophils # 0.3 10*3/uL (0.0-0.87); Eosinophils % 2.2 % (0.00-10.9); Hematocrit 39.4 VOL% (35.7-47.0); Hemoglobin 13.7 GM/DL (12.0-16.0); Immature Granulocytes % 0.4 %; Immature Granulocytes Absolute 0.05 #; Lymphocytes # 0.8 10*3/uL (1.4-4.0); Lymphocytes % 6.8 % (21.3-54.2); Mean Corpuscular HGB Conc 34.8 GM/DL (32-36); Mean Corpuscular Hemoglobin 31 PG (27-34); Mean Corpuscular Volume 88.5 FL (87-102); Mean Platelet Volume 9.9 FL (9.6-12.0); Monocytes # 0.8 10*3/uL (0.11-0.8); Monocytes % 6.7 % (1.7-12.7); Neutrophils # 9.7 10*3/uL (1.4-7.4); Neutrophils % 83.7 % (38.7-73.9); Platelet Count 251 T/CUMM (130-400); Red Blood Count 4.45 MC/CUMM (3.8-5.5); Red Cell Distribution Width 12.4 % (9.3-17.3); White Blood Count 11.6 T/CUMM (4-12)
[2017-05-02 06:19] LABS: Calcium 8.8 MG/DL (8.5-10.1); Magnesium 2.2 MG/DL (1.8-2.4); Osmolality,Calculated 268.4 MOS/KG (273-304); Potassium 3.9 MMOL/L (3.5-5.1)
--- NOTE | 2017-05-02 08:19 | EKG Report ---
Stationary ECG Study [facility] Test Date: 05/02/2017 8:19:05 AM Pat Name: MALATHI QUINTANILLA Department: Room: 289 Gender: F Cardiac Surgeon: : 1945 Requested by: Rosanna Valle Order Number: [id number] Reading MD: ROSANNA VALLE Intervals [place] Rate: 77 P: 62 RI: 174 QRS: 67 QRSD: 89 T: 140 QT: 482 QTc: 513 Interpretive Statements SINUS RHYTHM LOW QRS VOLTAGE IN PRECORDIAL LEADS MARKED T-WAVE ABNORMALITY, CONSIDER ANTEROLATERAL ISCHEMIA Electronically Signed On 05-02-17 13:49:35 CDT by ROSANNA VALLE [email or web address]
[2017-05-02] MEDS: ACETAMINOPHEN 325 MG TABLET PO SCH (09:09)
[2017-05-02] MEDS: PANTOPRAZOLE 40 MG TABLET PO SCH (09:10)
[2017-05-02] MEDS: LISINOPRIL 5 MG TABLET PO SCH (09:11)
[2017-05-02] MEDS: TICAGRELOR 90 MG TABLET PO SCH (09:11)
[2017-05-02] MEDS: CHOLECALCIFEROL 1,000 UNIT TABLET PO SCH (09:12)
[2017-05-02] MEDS: ASPIRIN EC 81 MG TABLET PO SCH (09:12)
[2017-05-02] MEDS: MULTIVITAMIN (OCUVITE) TABLET PO SCH (09:12)
[2017-05-02] MEDS: CYANOCOBALAMIN 500 MCG TABLET PO SCH (09:13)
[2017-05-02] MEDS: hydroCHLOROthiazide 12.5 MG CAPSULE PO SCH (09:13)
[2017-05-02] MEDS: LEVOTHYROXINE 75 MCG TABLET PO SCH (09:14)
--- NOTE | 2017-05-02 11:20 | Discharge Summary ---
Addendum entered and electronically signed by Reva Hilario NP 05/02/17 12:54 : Patient may resume Evista on 05/06/17. 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 CAPO ROSALES Ms. Aviles is a 71-year-old female who presented to the hospital from [facility] with complaints of chest pressure. She was diagnosed with non-ST elevated myocardial infarction in was noted to have an elevated troponin of 4.52 and EKG changes consistent with anterior ischemia. She was taken for left heart catheterization by Dr. Lewis on 04/30/2017 and was found to have 9% stenosis in the midportion of the LAD. She received drug- eluting stent to the mid LAD and the proximal edge of the mid LAD with good angiographic results. She was observed overnight in the CCU. Post-cath, her troponin rin to 5.54 but has begun trending down. She complained of some post cath shortness of breath and was given a one time dose of IV Lasix which dropped her blood pressure some. She was observed for an additional night and has done well. This morning, she is feeling well and her shortness of breath has resolved. She denies any chest pain. Her vital signs are stable. Lab work is stable. She will be able to resume her metformin on 05/03/2017. Her right groin is without bleeding, hematoma, or bruit. Femoral pulse is 3+. Distal pulses are present and palpable. She will continue DAPT treatment with aspirin and plavix. She will also continue her beta ginger, LETY inhibitor, and statin. She did report multiple stressors at home which cause her some anxiety and stress. We will start her on Sertraline and have her follow up with her PCP. She will also follow up with Dr. Lewis in 1-2 weeks with CBC, BMP w/ Mg, and EKG. At this time, she has met criteria for discharge and is stable to go home. - Time spent with patient Time with patient DS: Less than 30 minutes Diagnosis - Discharge Diagnosis (1) Non-STEMI (non-ST elevated myocardial infarction) Status: Resolved (2) Diabetes Status: Chronic (3) Hypertension Status: Chronic (4) Hypercholesterolemia Status: Chronic (5) Family history of coronary artery disease Status: Chronic (6) Stress at home Status: Acute Specialty Discharge - Follow Up or Referrals Follow up with: Robbie Lewis MD [Physician] - 2 Weeks (Follow up with Dr. Lewis in 2 weeks with CBC, BMP w/ Mg, and EKG. ) Discharge Plan - Discharge Data Disposition: Disch To Home/Self Care Condition at Discharge: Stable Discharge Diet: diabetic diet, heart healthy Activity: no lifting (over 10# for the next couple of weeks. ) Hygiene: may shower (Do not submerge cath site beneath water for the next week. ) Weight Bearing at Discharge: full weight bearing Driving: not for (2 days) Contact your physician if you experience:: fever over 101, Difficulty voiding, Redness or swelling, Nausea/Vomiting, Shortness of breath, Bleeding, pain uncontrolled by pain medications - Discharge Medications New Carvedilol [Coreg] 6.25 mg PO BID #60 tablet Sertraline [Zoloft] 25 mg PO BEDTIME #30 tablet Ticagrelor [Brilinta] 90 mg PO BID #60 tablet Lisinopril [Prinivil] 5 mg PO DAILY #30 tablet Continue Gabapentin 100 mg PO QPM Cholecalciferol [Vitamin D3] 1,000 unit PO DAILY Levothyroxine Tab [Synthroid Tab] 75 mcg PO DAILY Vit A/C/E AC/Znox/Cupric Oxide [Eye Vitamin-Minerals Tablet] 2 each PO BID Pravastatin [Pravachol] 40 mg PO BEDTIME Aspirin [Ecotrin] 81 mg PO BEDTIME hydroCHLOROthiazide [Hydrochlorothiazide] 12.5 mg PO DAILY glipiZIDE [Glipizide Xl] 2.5 mg PO DAILY Raloxifene [Evista] 60 mg PO DAILY Cyanocobalamin (Vitamin B-12) [Vitamin B-12] 1,000 mcg PO DAILY Naproxen [Naproxen Tab] 500 mg PO BID PRN PRN Reason: Pain metFORMIN [Glucophage] 500 mg PO BID #0 Discontinued Lisinopril 40 mg PO DAILY - Follow Up or Referral Follow Up: Robbie Lewis MD [Physician] - 2 Weeks - Forms/Instructions Instructions: Myocardial Infarction (GEN), Left Heart Catheterization (DC), Heart Healthy Diet (GEN), Coronary Intravascular Stent Placement (DC) Additional Discharge Instructions: May resume taking Metformin on Saturday, . Exam - Constitutional Vitals: Period Temp Pulse Resp BP Sys/Damain Pulse Ox Last 24 Hr 96.8 F-98.6 F 66-77 18-22 102-150/55-72 94-100 Exam: General: Present: Appears Well, No Apparent Distress. Pleasant and cooperative. Appears comfortable. HEENT: Present: PERRL, Normocephaly, atraumatic. Mucus Membranes Moist. No jaundice noted. Conjunctiva moist and clear, sclerae anicteric Neck: Present: Supple Neck, Midline Trachea, No Masses, No Bruit, No tenderness Cardiac: Present: Regular Rate and Rhythm, No Murmur Lungs: Present: Clear to auscultation bilaterally, no wheeze, rhonchi, rales. Neuro: Present: Awake, alert, and oriented x3. Moves all extremities well without hemiparesis or paralysis. Grossly Intact. Absent: Resting Tremor, Essential Tremor Abdomen: Present: Soft, Active Bowel Sounds, No Masses, Non-Tender, nondistended. No abdominal bruit or thrill noted. Skin: Present: Clear. Absent: Rash, No skin breakdown. Back: Normal inspection, no vertebral tenderness. Musculoskeletal: Present: No Fluid Collection, No Pain, Normal Range of Motion Extremities: Present: Normal Gait, No Clubbing, No Cyanosis, Upper Extr. Pulses 2+, Lower Extr. Pulses 2+, No edema. Capillary refill less than 3 seconds. Right groin: Dressing dry and intact with quarter sized area of blood-tinged drainage noted. No active bleeding, hematoma, or bruit at site. Femoral pulses 3+. Distal pulses present and palpable bilaterally. Discharge Results Procedures and tests throughout hospitalization: Pending Orders 05/03/17 04:00 BMP w/ Mg [Basic Metabolic Panel w/Mg] IN AM CBC [Comp Blood Count Auto Diff] IN AM Date of Procedure:: 04/30/17 Procedure performed: 1. Left heart catheterization 2. Coronary angiography 3. Left ventriculography 4. Percutaneous intervention to the LAD with a 2.5 x 23 mm Zions drug-eluting stent to the mid LAD with a good angiographic result 5. Percutaneous intervention of the proximal LAD with a 3.0 x 12 mm Zions drug- eluting stent to the proximal edge of the mid LAD stent with a good angiographic result 6. Percutaneous intervention to the mid right coronary artery with a 2.25 x 23 mm Zions drug-eluting stent with a good angiographic result 7. Angio-Seal closure right femoral arteriotomy site Coronary arteriography: Left coronary artery: Left main coronary artery is well-developed and free of significant obstructing lesions. The circumflex coronary is a large dominant vessel that possesses several areas of 50-70% stenosis. The first is an area just beyond the takeoff of second marginal branch. The first marginal has another area of 50-70% stenosis noted at its origin. Left anterior descending coronary is a large vessel extends around the apex of the ventricle. There is a complex 99% area stenosis in the midportion of the LAD which is long and angulated. There is JOSE ARMANDO grade I to II flow down the vessel noted. The distal LAD appears to be free of significant obstructing lesions. Right coronary artery: Right coronary is a large nondominant vessel and has a tubular 99% area stenosis in its midportion. The distal vessel appears to be normal size without evidence of significant disease noted distally. Left ventriculography: After injection of contrast in the left ventricle is known to be mildly enlarged with marked distal anterior akinesis and apical hypokinesis. Overall ejection fraction measured in the 35-40% range. Mitral and aortic structures appear normal by ventriculography. Percutaneous intervention: After the above-described procedure of the left coronary/LAD there appeared to be good resolution of the stenosis with JOSE ARMANDO grade III flow noted at the end of the procedure. This required intracoronary nitroglycerin to facilitate distal vasodilatation to improve flow. The patient remained clinically stable and it appeared to be improving at the end of the procedure is noted. The percutaneous intervention the right coronary was uncomplicated and there was good resolution of the stenosis with JOSE ARMANDO grade III flow down the vessel noted. Right femoral sheath angiography: After injection of contrast into the right femoral arterial sheath it appears to enter the common femoral above the bifurcation. No evidence of significant stenosis of the distal iliac, common femoral or bifurcation be noted based on this limited angiographic study. Conclusions: Successful percutaneous intervention of a mid LAD stenosis as outlined above with a 3.0 x 12 mm and a 2.5 x 23 mm Zions drug-eluting stent to the mid LAD with a good angiographic result. There was JOSE ARMANDO grade II to III flow noted post stent deployment which improved after intracoronary nitroglycerin. This looks most like a no reflow but appear to be improving markedly at the end the procedure. The patient also underwent percutaneous intervention of the right coronary with a 2.25 x 23 mm Zions drug-eluting stent. Patient tolerated procedure well and will be watched closely in the CCU setting. Labs on day of discharge: Labs from last 24 hours 05/02/17 05/02/17 05/02/17 07:23 04:28 04:28 WBC 11.6 D RBC 4.45 Hgb 13.7 Hct 39.4 MCV 88.5 MCH 31 MCHC 34.8 RDW 12.4 Plt Count 251 MPV 9.9 Neut % (Auto) 83.7 H Lymph % (Auto) 6.8 L [place] % (Auto) 6.7 Eos % (Auto) 2.2 Baso % (Auto) 0.2 Neut # (Auto) 9.7 H Lymph # (Auto) 0.8 L [place] # (Auto) 0.8 Eos # (Auto) 0.3 Baso # (Auto) 0.0 Immature Gran % 0.4 Nucleated RBC % 0.0 Immature Gran # 0.05 Nucleated RBCs # 0.00 Sodium 133 L Potassium 3.9 Chloride 95 L Carbon Dioxide 27 Anion Gap 14.9 BUN 11 Creatinine 0.70 GFR Calculation 81 BUN/Creatinine Ratio 15.00 Glucose 173 H POC Glucose 198 H Calculated Osmolality 268.4 L Calcium 8.8 Magnesium 2.2 Troponin I 05/02/17 05/02/17 05/01/17 04:28 01:16 16:36 WBC RBC Hgb Hct MCV MCH MCHC RDW Plt Count MPV Neut % (Auto) Lymph % (Auto) [place] % (Auto) Eos % (Auto) Baso % (Auto) Neut # (Auto) Lymph # (Auto) [place] # (Auto) Eos # (Auto) Baso # (Auto) Immature Gran % Nucleated RBC % Immature Gran # Nucleated RBCs # Sodium Potassium Chloride Carbon Dioxide Anion Gap BUN Creatinine GFR Calculation BUN/Creatinine Ratio Glucose POC Glucose 164 H 185 H Calculated Osmolality Calcium Magnesium Troponin I 3.400 H D 05/01/17 11:22 WBC RBC Hgb Hct MCV MCH MCHC RDW Plt Count MPV Neut % (Auto) Lymph % (Auto) [place] % (Auto) Eos % (Auto) Baso % (Auto) Neut # (Auto) Lymph # (Auto) [place] # (Auto) Eos # (Auto) Baso # (Auto) Immature Gran % Nucleated RBC % Immature Gran # Nucleated RBCs # Sodium Potassium Chloride Carbon Dioxide Anion Gap BUN Creatinine GFR Calculation BUN/Creatinine Ratio Glucose POC Glucose 218 H Calculated Osmolality Calcium Magnesium Troponin I DS: Provider Date of admission: 04/29/17 18:44 Primary care physician: Collins Keyes MD Attending physician on admission: Dileep Wright Consults: 04/30/17 06:40 Consult to Cardiac Rehabilitation [CONS] Routine Reason for Cardiac Rehabilitation: Other Consult Comment: NSTEMI 04/30/17 09:33 Consult to Cardiac Rehabilitation [CONS] Routine Reason for Cardiac Rehabilitation: Risk Factor Modification Discharging clinician: MARGARITO Jones Expected date of discharge: 05/02/17
[2017-05-02 11:53] VITALS: BP 112/56
[2017-05-02] MEDS ORDERED: SERTRALINE 25 MG TABLET PO SCH (21:00)
== END 2017-05-02 13:41 | disposition home or self-care (01) | DRG 247 ==
LOC: EDUNIT# → EDBD → N.ED 16:32 → N.EDINP 18:44 → N.TELES 19:24 → N.CC 04-30 09:41 → N.TELEN 05-01 15:14
PROVIDERS: ADMIT Internal Medicine Cardiovascular Disease; ATTEND Internal Medicine Cardiovascular Disease
PROC: CLCCHCL (ICD-10-PCS; 2017-04-30 08:15)

== ENCOUNTER 2017-05-03 16:20 | Inpatient (IN) ==
[2017-05-03] MEDS ORDERED: METOPROLOL TARTRATE 5 MG/5 ML VIAL IV STA (16:33)
[2017-05-03] MEDS ORDERED: NITROGLYCERIN 2% OINT 1 INCH/GM PACK TOP STA (16:33)
--- NOTE | 2017-05-03 16:40 | Emergency Department Note ---
Arrival - Arrival Chief Complaint: Chest Pain Stated Complaint: Chest Pain ED Nursing Triage Note: Pt states that she started having chest pain this am approx 9:30. She went to [facility] and was transfered to [facility] [place] via ambulance due to having two stents placed on saturday by MD Lewis. Mode of Arrival: Stretcher Limitations: No Limitations Source: Patient - History of Present Illness HPI Narrative: This 71-year-old female presents with complaints of chest pressure and shortness of breath for the last several hours. The patient was admitted 4 days ago for chest pain and received stenting the next day. She was discharged just yesterday and felt fine until this morning. She was evaluated at [facility] where she demonstrated a troponin of 1.6 and an EKG demonstrating septal and lateral wall T-wave inversion. She subsequently was given Lovenox and nitroglycerin and promptly shipped here. Currently the patient still has some mild central pressure and dyspnea but denies nausea or diaphoresis. Currently she appears medically stable. Onset (ago): hour(s) (Patient presents 6 hours post onset of symptoms) Allergies/Adverse Reactions: Allergies Allergy/AdvReac Type Severity Reaction Status Date / Time No Known Allergies Allergy Verified 04/29/17 16:45 Home Medications: Home Medications Medication Instructions Recorded Confirmed Type Aspirin [Ecotrin] 81 mg PO BEDTIME 01/26/16 04/29/17 History Cholecalciferol [Vitamin D3] 1,000 unit PO DAILY 01/26/16 04/29/17 History Gabapentin 100 mg PO QPM 01/26/16 04/29/17 History Levothyroxine Tab [Synthroid Tab] 75 mcg PO DAILY 01/26/16 04/29/17 History Pravastatin [Pravachol] 40 mg PO BEDTIME 01/26/16 04/29/17 History Vit A/C/E AC/Znox/Cupric Oxide 2 each PO BID 01/26/16 04/29/17 History [Eye Vitamin-Minerals Tablet] glipiZIDE [Glipizide Xl] 2.5 mg PO DAILY 01/26/16 04/29/17 History hydroCHLOROthiazide 12.5 mg PO DAILY 01/26/16 04/29/17 History [Hydrochlorothiazide] Raloxifene [Evista] 60 mg PO DAILY 04/09/16 04/29/17 History Cyanocobalamin (Vitamin B-12) 1,000 mcg PO DAILY 04/29/17 04/29/17 History [Vitamin B-12] Naproxen [Naproxen Tab] 500 mg PO BID PRN 04/29/17 04/29/17 History Carvedilol [Coreg] 6.25 mg PO BID #60 tablet 05/02/17 Rx Lisinopril [Prinivil] 5 mg PO DAILY #30 tablet 05/02/17 Rx Sertraline [Zoloft] 25 mg PO BEDTIME #30 tablet 05/02/17 Rx Ticagrelor [Brilinta] 90 mg PO BID #60 tablet 05/02/17 Rx metFORMIN [Glucophage] 500 mg PO BID #0 05/02/17 04/29/17 Rx Review of System - Review of System 12 point system: reviewed and no additional remarkable complaints except as stated - Review of System Constitutional: Present: as per HPI Respiratory: Present: as per HPI Cardiovascular: Present: as per HPI Gastrointestinal: Present: as per HPI Medical,Surgical,& Family Hx - Medical History Cardio: History of: Hypertension, Cardiovascular Problems (dr wu) Neurology: History of: Peripheral Neuropathy (feet) No history of: Seizures HEENT: History of: Eye Problem (glasses) Endocrine: History of: Diabetes Mellitus (NIDDM), Dyslipidemia Rheumatology: History of;: Rheumatoid Arthritis (left knee) Genitourinary: Comment Only: Recurring Urinary Tract Infections (pt has uti currently on antibiotics) Gastrointestinal: History of: GI Problems (screening) Musculoskeletal: History of: Musculoskeletal Problems (right hand tendonitis) - Surgical History Cardiac Surgeries: Sugical HX of: Cardiac Catheterization Abdominal Surgeries: Surgical HX of: Cholecystectomy (1994), Colonoscopy Reproductive Surgeries: Surgical HX of;: Tubal Ligation - Social History Smoking Status: Never smoker Frequency of Alcohol Use: None Type of Drug Use: None Exam Physical Examination: GENERAL: Well developed, well nourished elderly female in no acute distress. HEENT: Normocephalic. No trauma. Moist mucous membranes. EOMI. PERRLA. ENT NML NECK: Supple. No adenopathy. CARDIAC: Regular. No murmurs. Heart rate 70 CHEST: Clear to auscultation. No respiratory distress. O2 sat 98% ABDOMEN: Soft. Nontender. Active bowel sounds. EXTREMITIES: No trauma. Normal ROM. No pedal edema. SKIN: No diaphoresis. No rash. NEURO: Alert. Neuro intact no focal deficits. Vital Signs: Vital Signs Temperature 97.2 F L 05/03/17 16:21 Pulse Rate 73 05/03/17 16:21 Respiratory Rate 16 05/03/17 16:21 Blood Pressure 143/75 05/03/17 16:21 O2 Sat by Pulse Oximetry 98 05/03/17 16:21 Course - Reevaluation(s) Reevaluation #1: Advised patient that once again she would have to be admitted. - Consultations Consultation #1: Discussed with Dr. Valle who will admit for further evaluation treatment. Results - Labs Labs: Laboratory per [place] revealed a white blood count of 8500 hematocrit 35 BUN 9 creatinine 0.8 potassium 4.4 sodium 129 and glucose 174. Troponin as stated earlier was 1.6. - Impressions EKG at the [facility] revealed a sinus rhythm at 79 with normal MS interval and QRS duration with T-wave inversion anteriorly and laterally. EKG here: Sinus rhythm at 70 with normal MS interval and QRS duration. Resolution of T-wave inversion but still diffuse nonspecific ST changes. Disposition Clinical Impression: Chest pain post stenting, Coronary artery disease Case discussed with: patient Disposition: Still a Patient Condition: Stable Time of Disposition: 16:43
[2017-05-03] MEDS ORDERED: ONDANSETRON 4 MG/2 ML VIAL IV PRN (16:45)
[2017-05-03] MEDS ORDERED: DEXTROSE 50% 25 GM/50 ML VIAL IV PRN (16:45)
[2017-05-03] MEDS ORDERED: HYDROmorphone 2 MG/1 ML VIAL IV PRN (16:45)
[2017-05-03] MEDS ORDERED: GLUCAGON 1 MG VIAL IM PRN (16:45)
[2017-05-03 17:33] LABS: PT Patient Result 10.3 SECS; Partial Thromboplastin Time 35.5 SECS (0-40)
--- NOTE | 2017-05-03 19:21 | Cardiology History & Physical ---
Assessment and Plan - Time spent with patient Time spent with patient: Greater than 30 minutes (1) Chest pain in adult Status: Acute Assessment and plan: His chest pain right chest and right arm and back is different from her presenting anterior upper mid chest pain with a non-STEMI. The troponin is elevated but actually is decreasing compared to last troponin, suggesting resolution after an DC. Her shortness of breath is not necessarily activity, suggesting his anxiety Her T-wave changes are noted but they are actually less than when she went home after her intervention My suspicion is that this is anxiety or muscle skeletal pain which drove her the emergency room and her residual T-wave change in her residual troponin is what got her promptly sent to the next level emergency room care. I am suspicious this is resolution of her DC associated with some muscle skeletal pain with a trigger panic attack Plan/progress: Admit to telemetry Serial enzymes and EKG-see if it is worsening or getting better Treat for chest wall pain-tramadol, Tylenol, gabapentin It is apparent that the people at [facility] pharmacy change of Brilinta to Plavix-okay with me Lovenox 60 mg subcu now every 12-until we determine she has had an ischemic event this time or not Treat anxiety-sertraline and clonazepam Use proton pump inhibitor Further decisions present on her response to therapy and the enzymes The above was discussed with the patient and her . They voiced understanding and agree with the plan. Current Visit: No (2) Anxiety and depression Status: Acute Current Visit: Yes (3) Abnormal EKG Status: Acute Current Visit: Yes (4) Back pain Status: Acute Current Visit: Yes (5) Shortness of breath Status: Acute Current Visit: Yes (6) Elevated troponin Status: Acute Current Visit: No (7) Tear of lateral meniscus of left knee Status: Acute Current Visit: No (8) Diabetes Status: Chronic Current Visit: No (9) Family history of coronary artery disease Status: Chronic Current Visit: No (10) Hypercholesterolemia Status: Chronic Current Visit: No (11) Hypertension Status: Chronic Current Visit: No (12) Non-STEMI (non-ST elevated myocardial infarction) Status: Resolved Current Visit: No History of Present Illness Chief complaint: Hurt my right chest and the right arm and back History of present illness: Ms. Aviles is a 71 year old female PCP: [facility] Paraffiner:? Dr. Lewis Patient is 71. She just got out of the hospital after non-STEMI. She received a stent to the LAD, 2 stents, and then a stent to the right coronary. She did well. She was up and about and left yesterday. There was some anxiety. I added some sertraline . She went home. However, this morning, she had right anterior chest pain, back pain and right arm pain. Nothing brought it on. Nothing made it better. It was dull. It lasts for over 7 hours. Also, she had shortness breath. That was the most bothersome to her. It scared her. She went to [facility]. They obtained some labs. Her initial troponin was 1.67. EKG showed T-wave changes. She was transferred here. I was asked see her in better. These pains are different from her upper anterior heartburn type pain which she had to have a heart attack. No orthopnea, PND, edema, palpitations, syncope, cough, wheezing, or phlegm. She does have significant anxiety. Home Medications Medication Instructions Recorded Confirmed Type Aspirin [Ecotrin] 81 mg PO BEDTIME 01/26/16 05/03/17 History Cholecalciferol [Vitamin D3] 1,000 unit PO DAILY 01/26/16 05/03/17 History Gabapentin 100 mg PO QPM 01/26/16 05/03/17 History Levothyroxine Tab [Synthroid Tab] 75 mcg PO DAILY 01/26/16 05/03/17 History Pravastatin [Pravachol] 40 mg PO BEDTIME 01/26/16 05/03/17 History Vit A/C/E AC/Znox/Cupric Oxide 2 each PO BID 01/26/16 05/03/17 History [Eye Vitamin-Minerals Tablet] glipiZIDE [Glipizide Xl] 2.5 mg PO DAILY 01/26/16 05/03/17 History hydroCHLOROthiazide 12.5 mg PO DAILY 01/26/16 05/03/17 History [Hydrochlorothiazide] Raloxifene [Evista] 60 mg PO DAILY 04/09/16 05/03/17 History Cyanocobalamin (Vitamin B-12) 1,000 mcg PO DAILY 04/29/17 05/03/17 History [Vitamin B-12] Naproxen [Naproxen Tab] 500 mg PO BID PRN 04/29/17 05/03/17 History Carvedilol [Coreg] 6.25 mg PO BID #60 tablet 05/02/17 05/03/17 Rx Lisinopril [Prinivil] 5 mg PO DAILY #30 tablet 05/02/17 05/03/17 Rx Sertraline [Zoloft] 25 mg PO BEDTIME #30 tablet 05/02/17 05/03/17 Rx Ticagrelor [Brilinta] 90 mg PO BID #60 tablet 05/02/17 05/03/17 Rx metFORMIN [Glucophage] 500 mg PO BID #0 05/02/17 05/03/17 Rx Allergies Allergy/AdvReac Type Severity Reaction Status Date / Time No Known Allergies Allergy Verified 05/03/17 19:03 12 point system: reviewed and no additional remarkable complaints except as stated (A 12 point review of systems is negative except for as mentioned in the HPI.) Medical,Surgical,& Family Hx - Medical History Cardio: History of: Hypertension, Cardiovascular Problems (dr wu) Neurology: History of: Peripheral Neuropathy (feet) No history of: Seizures HEENT: History of: Eye Problem (glasses) Endocrine: History of: Diabetes Mellitus (NIDDM), Dyslipidemia Rheumatology: History of;: Rheumatoid Arthritis (left knee) Genitourinary: Comment Only: Recurring Urinary Tract Infections (pt has uti currently on antibiotics) Gastrointestinal: History of: GI Problems (screening) Musculoskeletal: History of: Musculoskeletal Problems (right hand tendonitis) - Surgical History Cardiac Surgeries: Sugical HX of: Cardiac Catheterization (04/30/2017) Abdominal Surgeries: Surgical HX of: Cholecystectomy (1994), Colonoscopy Reproductive Surgeries: Surgical HX of;: Tubal Ligation - Social History Smoking Status: Never smoker Frequency of Alcohol Use: None Type of Drug Use: None Cardiology Physical Exam - Constitutional Vitals: Vital Signs Temp Pulse Resp BP Pulse Ox 96.4 F L 76 18 116/50 96 05/03/17 18:49 05/03/17 18:49 05/03/17 18:49 05/03/17 18:49 05/03/17 18:49 Intake and Output 05/03/17 05/03/17 05/03/17 07:59 15:59 23:59 Other: Weight 64.864 kg Patient Weight 05/03/17 23:59 Weight 64.864 kg Exam: HEENT: Pupils equal, reactive to light and accommodation Neck: NoJVD or bruit Lungs clear to auscultation Heart: Regular rhythm rate with normal S1 and S2. Apical S4 Abdomen: No hepatosplenomegaly Spine/extremities: No clubbing, cyanosis, or edema Neuro: Nonfocal Psych: No depression; she does appear to have 3+ anxiety Possibly some chest wall tenderness where she said it hurt. Result/EKG - Labs Lab Results: I have reviewed the past 24 hour labs Labs: Laboratory Results - last 24 hr 05/03/17 05/03/17 17:15 17:15 INR 1.0 PT Patient/Control Mix 10.3 Circ Anticoag PTT 35.5 Total Creatine Kinase 113 D CK-MB (CK-2) < 1.0 D Troponin I 1.800 H D Labs from [facility] revealed normal chemistry and CBC.
[2017-05-03] MEDS ORDERED: GABAPENTIN 100 MG CAPSULE PO SCH (19:30)
[2017-05-03] MEDS: NITROGLYCERIN 2% OINT 1 INCH/GM PACK TOP SCH ×2 (21:22→22:47)
[2017-05-03] MEDS: MULTIVITAMIN (OCUVITE) TABLET PO SCH (21:32)
[2017-05-03] MEDS: GABAPENTIN 100 MG CAPSULE PO SCH ×2 (21:33→21:35)
[2017-05-03] MEDS: traMADol 50 MG TABLET PO SCH ×2 (21:33→21:35)
[2017-05-03] MEDS: PRAVASTATIN 40 MG TABLET PO SCH (21:36)
[2017-05-03] MEDS: ACETAMINOPHEN 325 MG TABLET PO SCH (21:36)
[2017-05-03] MEDS: CARVEDILOL 6.25 MG TABLET PO SCH (21:36)
[2017-05-03] MEDS: clonazePAM 0.5 MG TABLET PO SCH (21:36)
[2017-05-03] MEDS: SERTRALINE 50 MG TABLET PO SCH (21:36)
[2017-05-03 22:05] LABS: Calcium 8.9 MG/DL (8.5-10.1); Osmolality,Calculated 263.5 MOS/KG (273-304); Potassium 3.9 MMOL/L (3.5-5.1)
[2017-05-03] MEDS: INSULIN REGULAR 100 UNIT/ML SUBCUT SCH (22:37)
[2017-05-03] MEDS: ENOXAPARIN 60 MG/0.6 ML SYRINGE SUBCUT SCH (22:46)
[2017-05-04] MEDS: NITROGLYCERIN 2% OINT 1 INCH/GM PACK TOP SCH ×4 (06:18→23:18)
[2017-05-04] MEDS: LEVOTHYROXINE 75 MCG TABLET PO SCH (06:39)
--- NOTE | 2017-05-04 07:23 | EKG Report ---
Stationary ECG Study [facility] ER Test Date: 05/03/2017 4:29:44 PM Pat Name: MALATHI UQINTANILLA Department: Room: 267 Gender: F Help Desk Intern: : 1945 Requested by: Adriano Cavazos Order Number: [id number] Reading MD: ROSANNA SULLIVAN Intervals [place] Rate: 70 P: 28 DE: 164 QRS: 63 QRSD: 86 T: 134 QT: 412 QTc: 432 Interpretive Statements SINUS RHYTHM ST DEVIATION AND MODERATE T-WAVE ABNORMALITY, CONSIDER LATERAL ISCHEMIA Electronically Signed On 05-05-17 15:30:14 CDT by ROSANNA SULLIVAN [email or web address]
--- NOTE | 2017-05-04 08:23 | EKG Report ---
Stationary ECG Study [facility] Test Date: 05/04/2017 8:24:18 AM Pat Name: MALATHI QUINTANILLA Department: Room: 267 Gender: F Web Producer: : 1945 Requested by: Adriano Cavazos Order Number: [id number] Reading MD: ROSANNA SULLIVAN Intervals [place] Rate: 61 P: 78 ND: 171 QRS: 75 QRSD: 94 T: 138 QT: 466 QTc: 470 Interpretive Statements SINUS RHYTHM NONSPECIFIC T-WAVE ABNORMALITY Electronically Signed On 05-05-17 15:34:07 CDT by ROSANNA SULLIVAN [email or web address]
[2017-05-04 08:49] LABS: Basophils % 0.2 % (0.0-0.8); Eosinophils # 0.2 10*3/uL (0.0-0.87); Eosinophils % 2.1 % (0.00-10.9); Hematocrit 34.8 VOL% (35.7-47.0); Immature Granulocytes % 0.6 %; Immature Granulocytes Absolute 0.06 #; Lymphocytes # 0.7 10*3/uL (1.4-4.0); Lymphocytes % 6.9 % (21.3-54.2); Mean Corpuscular HGB Conc 34.5 GM/DL (32-36); Mean Corpuscular Hemoglobin 31 PG (27-34); Mean Corpuscular Volume 90.2 FL (87-102); Mean Platelet Volume 9.5 FL (9.6-12.0); Monocytes # 0.7 10*3/uL (0.11-0.8); Monocytes % 7.3 % (1.7-12.7); Neutrophils % 82.9 % (38.7-73.9); Platelet Count 238 T/CUMM (130-400); Red Blood Count 3.86 MC/CUMM (3.8-5.5); Red Cell Distribution Width 12.3 % (9.3-17.3); White Blood Count 9.7 T/CUMM (4-12)
[2017-05-04] MEDS ORDERED: LEVOTHYROXINE 75 MCG TABLET PO SCH (09:00)
[2017-05-04] MEDS ORDERED: LISINOPRIL 5 MG TABLET PO SCH (09:00)
[2017-05-04 09:10] LABS: Alanine Aminotransferase 35 U/L (13-56); Albumin 3.6 G/DL (3.4-5.0); Alkaline Phosphatase 48 U/L (45-117); Aspartate Amino Transferase 33 U/L (0-37); Blood Urea Nitrogen 11 MG/DL (7-18); Calcium 8.6 MG/DL (8.5-10.1); Glucose 213 MG/DL (74-106); Osmolality,Calculated 264.8 MOS/KG (273-304); Potassium 4.1 MMOL/L (3.5-5.1); Sodium 130 MMOL/L (136-145); Total Protein 6.7 G/DL (6.4-8.3)
[2017-05-04] MEDS: INSULIN REGULAR 100 UNIT/ML SUBCUT SCH ×4 (09:18→21:17)
[2017-05-04] MEDS: RALOXIFENE 60 MG TABLET PO SCH (09:19)
[2017-05-04] MEDS: glipiZIDE 5 MG TABLET PO SCH (09:19)
[2017-05-04] MEDS: CHOLECALCIFEROL 1,000 UNIT TABLET PO SCH (09:19)
[2017-05-04] MEDS: CLOPIDOGREL 75 MG TABLET PO SCH (09:19)
[2017-05-04] MEDS: MULTIVITAMIN (OCUVITE) TABLET PO SCH ×2 (09:19→21:15)
[2017-05-04] MEDS: CYANOCOBALAMIN 500 MCG TABLET PO SCH (09:19)
[2017-05-04] MEDS: CARVEDILOL 6.25 MG TABLET PO SCH ×2 (09:20→21:17)
[2017-05-04] MEDS: clonazePAM 0.5 MG TABLET PO SCH ×2 (09:21→21:15)
[2017-05-04] MEDS: GABAPENTIN 100 MG CAPSULE PO SCH ×3 (09:21→21:16)
[2017-05-04] MEDS: PANTOPRAZOLE 40 MG TABLET PO SCH (09:21)
[2017-05-04] MEDS: traMADol 50 MG TABLET PO SCH ×2 (09:21→21:16)
[2017-05-04] MEDS: ACETAMINOPHEN 325 MG TABLET PO SCH ×2 (09:24→21:16)
[2017-05-04] MEDS: ENOXAPARIN 60 MG/0.6 ML SYRINGE SUBCUT SCH ×2 (11:03→23:19)
--- NOTE | 2017-05-04 15:05 | Cardiology Progress Note ---
Assessment and Plan (1) Chest pain in adult Status: Acute Assessment and plan: His chest pain right chest and right arm and back is different from her presenting anterior upper mid chest pain with a non-STEMI. The troponin is elevated but actually is decreasing compared to last troponin, suggesting resolution after an MS. Her shortness of breath is not necessarily activity, suggesting his anxiety Her T-wave changes are noted but they are actually less than when she went home after her intervention My suspicion is that this is anxiety or muscle skeletal pain which drove her the emergency room and her residual T-wave change in her residual troponin is what got her promptly sent to the next level emergency room care. I am suspicious this is resolution of her MS associated with some muscle skeletal pain with a trigger panic attack Plan/progress: Admit to telemetry Serial enzymes and EKG-see if it is worsening or getting better Treat for chest wall pain-tramadol, Tylenol, gabapentin It is apparent that the people at [facility] pharmacy change of Brilinta to Plavix-okay with me Lovenox 60 mg subcu now every 12-until we determine she has had an ischemic event this time or not Treat anxiety-sertraline and clonazepam Use proton pump inhibitor Further decisions present on her response to therapy and the enzymes The above was discussed with the patient and her . They voiced understanding and agree with the plan. 05/04/17 EKG shows no change or slightly less T-wave inversions Troponins are decreasing and CK-MB is normal, suggesting this is resolution of the prior MRI Anxiety slightly better Right chest, right arm and back pain is better with my typical musculoskeletal cocktail Will change his O2 to as needed Ambulate today Continue antianxiety medicine Possibly home tomorrow if remains stable Current Visit: No (2) Anxiety and depression Status: Acute Current Visit: Yes (3) Abnormal EKG Status: Acute Current Visit: Yes (4) Back pain Status: Acute Current Visit: Yes (5) Shortness of breath Status: Acute Current Visit: Yes (6) Elevated troponin Status: Acute Current Visit: No (7) Tear of lateral meniscus of left knee Status: Acute Current Visit: No (8) Diabetes Status: Chronic Current Visit: No (9) Family history of coronary artery disease Status: Chronic Current Visit: No (10) Hypercholesterolemia Status: Chronic Current Visit: No (11) Hypertension Status: Chronic Current Visit: No Cardiology - PN: Subj Interval history: No chest pain or less back and right arm and right chest pain. Blood pressure is borderline low Still some anxiety Exam (Progress Note) - Constitutional Vitals: Period Temp Pulse Resp BP Sys/Damian Pulse Ox Last 24 Hr 96.4 F-97.8 F 60-89 12-20 94-154/50-85 95-99 Exam: HEENT: Pupils equal, reactive to light and accommodation Neck: NoJVD or bruit Lungs clear to auscultation Heart: Regular rhythm rate with normal S1 and S2. Apical S4 Abdomen: No hepatosplenomegaly Spine/extremities: No clubbing, cyanosis, or edema Neuro: Nonfocal Psych: No depression or anxiety Result/EKG - Labs CBC & BMP: 05/04/17 08:24 05/04/17 08:24 Lab Results: I have reviewed the past 24 hour labs Labs: Laboratory Results - last 24 hr 05/03/17 05/03/17 05/03/17 17:15 17:15 20:34 WBC RBC Hgb Hct MCV MCH MCHC RDW Plt Count MPV Neut % (Auto) Lymph % (Auto) Ransom % (Auto) Eos % (Auto) Baso % (Auto) Neut # (Auto) Lymph # (Auto) Ransom # (Auto) Eos # (Auto) Baso # (Auto) Immature Gran % Nucleated RBC % Immature Gran # Nucleated RBCs # INR 1.0 PT Patient/Control Mix 10.3 Circ Anticoag PTT 35.5 Sodium Potassium Chloride Carbon Dioxide Anion Gap BUN Creatinine GFR Calculation BUN/Creatinine Ratio Glucose POC Glucose Calculated Osmolality Calcium Total Bilirubin AST ALT Alkaline Phosphatase Total Creatine Kinase 113 D CK-MB (CK-2) < 1.0 D Troponin I 1.800 H D 2.030 H Total Protein Albumin Globulin Albumin/Globulin Ratio 05/03/17 05/03/17 05/04/17 20:35 22:53 06:57 WBC RBC Hgb Hct MCV MCH MCHC RDW Plt Count MPV Neut % (Auto) Lymph % (Auto) Ransom % (Auto) Eos % (Auto) Baso % (Auto) Neut # (Auto) Lymph # (Auto) Ransom # (Auto) Eos # (Auto) Baso # (Auto) Immature Gran % Nucleated RBC % Immature Gran # Nucleated RBCs # INR PT Patient/Control Mix Circ Anticoag PTT Sodium 132 L Potassium 3.9 Chloride 95 L Carbon Dioxide 24 Anion Gap 16.9 H BUN 6 L Creatinine 0.60 GFR Calculation 86 BUN/Creatinine Ratio 10.00 Glucose 127 H POC Glucose 229 H Calculated Osmolality 263.5 L Calcium 8.9 Total Bilirubin AST ALT Alkaline Phosphatase Total Creatine Kinase CK-MB (CK-2) Troponin I 1.970 H Total Protein Albumin Globulin Albumin/Globulin Ratio 05/04/17 05/04/17 05/04/17 08:24 08:24 10:13 WBC 9.7 RBC 3.86 Hgb 12.0 Hct 34.8 L MCV 90.2 MCH 31 MCHC 34.5 RDW 12.3 Plt Count 238 MPV 9.5 L Neut % (Auto) 82.9 H Lymph % (Auto) 6.9 L Ransom % (Auto) 7.3 Eos % (Auto) 2.1 Baso % (Auto) 0.2 Neut # (Auto) 8.0 H Lymph # (Auto) 0.7 L Ransom # (Auto) 0.7 Eos # (Auto) 0.2 Baso # (Auto) 0.0 Immature Gran % 0.6 Nucleated RBC % 0.0 Immature Gran # 0.06 Nucleated RBCs # 0.00 INR PT Patient/Control Mix Circ Anticoag PTT Sodium 130 L Potassium 4.1 Chloride 92 L Carbon Dioxide 28 Anion Gap 14.1 BUN 11 Creatinine 0.80 GFR Calculation 70 BUN/Creatinine Ratio 13.00 Glucose 213 H POC Glucose Calculated Osmolality 264.8 L Calcium 8.6 Total Bilirubin 0.90 AST 33 ALT 35 Alkaline Phosphatase 48 Total Creatine Kinase 85 D 78 CK-MB (CK-2) < 1.0 < 1.0 Troponin I 1.250 H D 1.020 H Total Protein 6.7 Albumin 3.6 Globulin 3.1 Albumin/Globulin Ratio 1.1 05/04/17 11:30 WBC RBC Hgb Hct MCV MCH MCHC RDW Plt Count MPV Neut % (Auto) Lymph % (Auto) Ransom % (Auto) Eos % (Auto) Baso % (Auto) Neut # (Auto) Lymph # (Auto) Ransom # (Auto) Eos # (Auto) Baso # (Auto) Immature Gran % Nucleated RBC % Immature Gran # Nucleated RBCs # INR PT Patient/Control Mix Circ Anticoag PTT Sodium Potassium Chloride Carbon Dioxide Anion Gap BUN Creatinine GFR Calculation BUN/Creatinine Ratio Glucose POC Glucose 190 H Calculated Osmolality Calcium Total Bilirubin AST ALT Alkaline Phosphatase Total Creatine Kinase CK-MB (CK-2) Troponin I Total Protein Albumin Globulin Albumin/Globulin Ratio - EKG EKG results: interpreted by me
[2017-05-04] MEDS: SERTRALINE 50 MG TABLET PO SCH (21:15)
[2017-05-04] MEDS: PRAVASTATIN 40 MG TABLET PO SCH (21:15)
[2017-05-05] MEDS: NITROGLYCERIN 2% OINT 1 INCH/GM PACK TOP SCH ×2 (05:02→11:11)
[2017-05-05] MEDS: LEVOTHYROXINE 75 MCG TABLET PO SCH (06:19)
[2017-05-05] MEDS: INSULIN REGULAR 100 UNIT/ML SUBCUT SCH ×4 (09:01→21:41)
[2017-05-05] MEDS: GABAPENTIN 100 MG CAPSULE PO SCH ×3 (09:02→21:36)
[2017-05-05] MEDS: CAPTOPRIL 6.25 MG TABLET PO SCH ×2 (09:02→21:36)
[2017-05-05] MEDS: CYANOCOBALAMIN 500 MCG TABLET PO SCH (09:02)
[2017-05-05] MEDS: MULTIVITAMIN (OCUVITE) TABLET PO SCH ×2 (09:02→21:36)
[2017-05-05] MEDS: CHOLECALCIFEROL 1,000 UNIT TABLET PO SCH (09:02)
[2017-05-05] MEDS: glipiZIDE 5 MG TABLET PO SCH (09:03)
[2017-05-05] MEDS: ACETAMINOPHEN 325 MG TABLET PO SCH ×2 (09:05→21:40)
[2017-05-05] MEDS: traMADol 50 MG TABLET PO SCH ×2 (09:05→21:35)
[2017-05-05] MEDS: CLOPIDOGREL 75 MG TABLET PO SCH (09:05)
[2017-05-05] MEDS: clonazePAM 0.5 MG TABLET PO SCH ×2 (09:06→21:37)
[2017-05-05] MEDS: CARVEDILOL 6.25 MG TABLET PO SCH ×2 (09:06→21:36)
[2017-05-05] MEDS: PANTOPRAZOLE 40 MG TABLET PO SCH (09:06)
[2017-05-05] MEDS: RALOXIFENE 60 MG TABLET PO SCH (09:07)
[2017-05-05] MEDS: ENOXAPARIN 60 MG/0.6 ML SYRINGE SUBCUT SCH (11:14)
[2017-05-05] MEDS: ENOXAPARIN 40 MG/0.4 ML SYRINGE SUBCUT SCH (11:34)
--- NOTE | 2017-05-05 12:50 | Cardiology Progress Note ---
Assessment and Plan (1) Chest pain in adult Status: Acute Assessment and plan: His chest pain right chest and right arm and back is different from her presenting anterior upper mid chest pain with a non-STEMI. The troponin is elevated but actually is decreasing compared to last troponin, suggesting resolution after an AL. Her shortness of breath is not necessarily activity, suggesting his anxiety Her T-wave changes are noted but they are actually less than when she went home after her intervention My suspicion is that this is anxiety or muscle skeletal pain which drove her the emergency room and her residual T-wave change in her residual troponin is what got her promptly sent to the next level emergency room care. I am suspicious this is resolution of her AL associated with some muscle skeletal pain with a trigger panic attack Plan/progress: Admit to telemetry Serial enzymes and EKG-see if it is worsening or getting better Treat for chest wall pain-tramadol, Tylenol, gabapentin It is apparent that the people at [facility] pharmacy change of Brilinta to Plavix-okay with me Lovenox 60 mg subcu now every 12-until we determine she has had an ischemic event this time or not Treat anxiety-sertraline and clonazepam Use proton pump inhibitor Further decisions present on her response to therapy and the enzymes The above was discussed with the patient and her . They voiced understanding and agree with the plan. 05/04/17 EKG shows no change or slightly less T-wave inversions Troponins are decreasing and CK-MB is normal, suggesting this is resolution of the prior MRI Anxiety slightly better Right chest, right arm and back pain is better with my typical musculoskeletal cocktail Will change his O2 to as needed Ambulate today Continue antianxiety medicine Possibly home tomorrow if remains stable 05/05/17: Some episodic dyspnea. This is not exertional it sounds anxiety related. She certainly is anxious and not responding to an SSRI in addition to clonazepam.. Less likely could be heart failure, ischemia or some other cause , but I doubt these are causing her symptoms Plan/recommendation: Consult [facility]-patient is having episodes of shortness breath was relieved with panic attacks, evaluate and recommend, she may be transferred you if needed BNP Chest x-ray Take a deep breath with the episodes of shortness of breath I am unsure as to the episodes of nausea and vomiting unless they were type of anxiety event or panic attack. We will increase the dose of clonazepam. The GPU people may need to change medicines to control her anxiety and depression. Current Visit: No (2) Anxiety and depression Status: Acute Current Visit: Yes (3) Abnormal EKG Status: Acute Current Visit: Yes (4) Back pain Status: Acute Current Visit: Yes (5) Shortness of breath Status: Acute Current Visit: Yes (6) Elevated troponin Status: Acute Current Visit: No (7) Tear of lateral meniscus of left knee Status: Acute Current Visit: No (8) Diabetes Status: Chronic Current Visit: No (9) Family history of coronary artery disease Status: Chronic Current Visit: No (10) Hypercholesterolemia Status: Chronic Current Visit: No (11) Hypertension Status: Chronic Current Visit: No Cardiology - PN: Subj Interval history: No chest pain. Some shortness of breath which comes and goes. He can occur even while she is sitting around. It somewhat lessens with deep breath. She has no associated chest pain with it. It would last 1-2 minutes. She is scared when it occurs. No associated nausea or diaphoresis. Had nausea on 2 different episodes yesterday with vomiting. No orthopnea, PND, edema, palpitations, syncope, cough, wheezing, or phlegm. Exam (Progress Note) - Constitutional Vitals: Period Temp Pulse Resp BP Sys/Damian Pulse Ox Last 24 Hr 97 F-98 F 58-68 18-20 99-122/52-62 92-98 Exam: HEENT: Pupils equal, reactive to light and accommodation Neck: NoJVD or bruit Lungs clear to auscultation Heart: Regular rhythm rate with normal S1 and S2. Apical S4 Abdomen: No hepatosplenomegaly Spine/extremities: No clubbing, cyanosis, or edema Neuro: Nonfocal Psych: Probably some mild depression . However there is significant anxiety. Result/EKG - Labs CBC & BMP: 05/04/17 08:24 05/04/17 08:24 Labs: Laboratory Results - last 24 hr 05/04/17 05/04/17 05/05/17 16:47 19:19 06:49 POC Glucose 100 163 H 160 H 05/05/17 11:15 POC Glucose 195 H
[2017-05-05] MEDS ORDERED: clonazePAM 0.5 MG TABLET PO ONE (12:56)
--- NOTE | 2017-05-05 13:28 | XRay Report ---
Two-view chest. Indication: Shortness of breath. Comparison: April 29, 2017. The heart is normal in size. There is calcific plaque present within the aortic knob. The pulmonary vasculature is normal. The lung feliciano are clear. Surgical clips are noted in the right upper quadrant. A coronary artery stent is visible. Osseous structures are unremarkable. Impression: No acute abnormality. PROCEDURE INTERPRETED AT [facility] DEPARTMENT OF RADIOLOGY Final Report Signed by: Dr. Janeth Wilson
[2017-05-05] MEDS: PRAVASTATIN 40 MG TABLET PO SCH (21:36)
[2017-05-05] MEDS: SERTRALINE 50 MG TABLET PO SCH (21:37)
[2017-05-06] MEDS: LEVOTHYROXINE 75 MCG TABLET PO SCH (06:23)
[2017-05-06] MEDS: INSULIN REGULAR 100 UNIT/ML SUBCUT SCH ×2 (09:35→12:28)
[2017-05-06] MEDS: glipiZIDE 5 MG TABLET PO SCH (09:35)
[2017-05-06] MEDS: CAPTOPRIL 6.25 MG TABLET PO SCH (09:37)
[2017-05-06] MEDS: MULTIVITAMIN (OCUVITE) TABLET PO SCH (09:37)
[2017-05-06] MEDS: ACETAMINOPHEN 325 MG TABLET PO SCH (09:38)
[2017-05-06] MEDS: CYANOCOBALAMIN 500 MCG TABLET PO SCH (09:38)
[2017-05-06] MEDS: PANTOPRAZOLE 40 MG TABLET PO SCH (09:38)
[2017-05-06] MEDS: CARVEDILOL 6.25 MG TABLET PO SCH (09:39)
[2017-05-06] MEDS: CLOPIDOGREL 75 MG TABLET PO SCH (09:39)
[2017-05-06] MEDS: clonazePAM 0.5 MG TABLET PO SCH (09:39)
[2017-05-06] MEDS: GABAPENTIN 100 MG CAPSULE PO SCH ×2 (09:40→15:45)
[2017-05-06] MEDS: traMADol 50 MG TABLET PO SCH (09:40)
[2017-05-06] MEDS: RALOXIFENE 60 MG TABLET PO SCH (09:45)
[2017-05-06] MEDS: CHOLECALCIFEROL 1,000 UNIT TABLET PO SCH (10:35)
[2017-05-06 12:23] VITALS: BP 114/51
[2017-05-06] MEDS: ENOXAPARIN 40 MG/0.4 ML SYRINGE SUBCUT SCH (12:42)
--- NOTE | 2017-05-06 14:46 | Discharge Summary ---
Betty Bui April, RN, am scribing for, and in the presence of, Dileep Guido MD 14:45. Hospital Course - Hospital Course Hospital Course: PCP: [facility] Lifter/Driver: Dr. Guido Ms. Aviles is a 71-year-old female with a history of CAD, hypertension, dyslipidemia, and stress at home. She was admitted 04/29/2017 with a non-STEMI. She was taken to the [facility] with the following findings: Successful percutaneous intervention of a mid LAD stenosis as outlined above with a 3.0 x 12 mm and a 2.5 x 23 mm Zions drug-eluting stent to the mid LAD with a good angiographic result. There was JOSE ARMANDO grade II to III flow noted post stent deployment which improved after intracoronary nitroglycerin. This looks most like a no reflow but appear to be improving markedly at the end the procedure. The patient also underwent percutaneous intervention of the right coronary with a 2.25 x 23 mm Zions drug-eluting stent. Patient tolerated procedure well and will be watched closely in the CCU setting. On 05/02/2017 she was stable and it was felt she was ready for discharge. Presented by the emergency department on 05/03/2017 with complaints of right sided chest, right arm, and back pain that was different from the presenting chest pain she had before her non-STEMI. EKG showed sinus rhythm with heart rate of 61. Her troponin on discharge 05/02/2017 was 3.400. Troponin on admission 05/03/2017 was 1.800, it climbed a bit to 2.030 and has trended down since. Last was checked 05/04/2017 and it was 1.020. According to Dr. Valle's notes, she has been very anxious during this hospitalization. He had question of her chest pain was related to anxiety/panic attacks. He put her on tramadol, Tylenol, gabapentin to treat chest wall pain. He also added sertraline, clonazepam and proton pump inhibitor. He consulted [facility] to see if she can be transferred as they can manage her anxiety medications. Today she is sitting up in chair in no acute distress. She denies any chest pain or shortness of breath at the present time. She has a flat affect today and seems a bit drowsy. She is agreeable to go to the [facility] unit and she has been accepted. She is concerned about having takes any medications and is hoping they can help her with this. It is felt she has reached maximum benefit from hospitalization and will be transferred there today. RSJ: Ms. Aviles is troponins continued to drop gradually consistent with previous non-STEMI last week. She is feeling a bit better and is not having any chest discomfort. I reviewed her cath procedure and saw that she had diminished fluid in her LAD which improved a bit at the end of the procedure. I noted she had significant circumflex disease treated medically which was not as critical as her RCA and LAD disease. We will treat this medically for the time being and bring her back for intervention if needed. Her right groin site is without bleeding bruit or hematoma. We will change her captopril back to lisinopril and low-dose hydrochlorothiazide. - Time spent with patient Time with patient DS: Greater than 30 minutes Diagnosis - Discharge Diagnosis (1) CAD (coronary artery disease) Status: Chronic (2) Chest pain in adult Status: Resolved (3) Stress at home Status: Chronic (4) Diabetes Status: Chronic Specialty Discharge - Follow Up or Referrals Follow up with: Dileep Guido MD [Physician] - 2 Weeks Discharge Plan - Discharge Data Disposition: Disch/Xfer to Snf Condition at Discharge: Stable Discharge Diet: diabetic diet Activity: increase activity as tolerated Hygiene: no restrictions Weight Bearing at Discharge: weight bear as tolerated Driving: no restrictions Contact your physician if you experience:: fever over 101, Difficulty voiding, Redness or swelling, Nausea/Vomiting, Shortness of breath, Bleeding, pain uncontrolled by pain medications - Discharge Medications New Aspirin Chew Tab 81 mg PO DAILY tablet Clopidogrel [Plavix] 75 mg PO DAILY #30 tablet Sertraline [Zoloft] 50 mg PO BEDTIME #30 tablet Continue Gabapentin 100 mg PO QPM Cholecalciferol [Vitamin D3] 1,000 unit PO DAILY Levothyroxine Tab [Synthroid Tab] 75 mcg PO DAILY Vit A/C/E AC/Znox/Cupric Oxide [Eye Vitamin-Minerals Tablet] 2 each PO BID Pravastatin [Pravachol] 40 mg PO BEDTIME hydroCHLOROthiazide [Hydrochlorothiazide] 12.5 mg PO DAILY glipiZIDE [Glipizide Xl] 2.5 mg PO DAILY Raloxifene [Evista] 60 mg PO DAILY Cyanocobalamin (Vitamin B-12) [Vitamin B-12] 1,000 mcg PO DAILY Naproxen [Naproxen Tab] 500 mg PO BID PRN PRN Reason: Pain Carvedilol [Coreg] 6.25 mg PO BID #60 tablet metFORMIN [Glucophage] 500 mg PO BID #0 Lisinopril [Prinivil] 5 mg PO DAILY #30 tablet Discontinued Sertraline [Zoloft] 25 mg PO BEDTIME #30 tablet Ticagrelor [Brilinta] 90 mg PO BID #60 tablet No Action Aspirin [Ecotrin] 81 mg PO BEDTIME - Follow Up or Referral - Forms/Instructions Exam - Constitutional Vitals: Period Temp Pulse Resp BP Sys/Damian Pulse Ox Last 24 Hr 97.2 F-98.8 F 57-65 16-18 103-131/51-60 92-98 General appearance: normal weight, no acute distress - Head Head exam: Absent: abrasion, hematoma - Eye Eye exam: Absent: periorbital swelling, laceration to eyelids - Respiratory Respiratory exam: Present: clear to auscultation bilaterally. Absent: accessory muscle use, chest wall tenderness - Cardiovascular Cardiovascular exam: Present: regular rate and rhythm - GI/Abdominal GI/Abdominal exam: Present: normal bowel sounds, soft. Absent: distended, tenderness - Extremities Exam Extremities exam: Absent: edema - Neurological Exam Neurological exam: Present: alert, oriented X3 - Psychiatric Psychiatric exam: Present: depressed, flat affect - Skin Skin exam: Present: warm, dry Discharge Results Labs on day of discharge: Labs from last 24 hours 05/06/17 05/06/17 05/05/17 12:03 07:14 21:35 POC Glucose 142 H 171 H 140 H 05/05/17 15:30 POC Glucose 94 - Imaging and Cardiology Procedure: Chest x-ray: report reviewed by me DS: Provider Consults: 05/05/17 12:44 Consult to Case Mgmt/Social Srvs [CONS] Routine Reason for Case Mgmt/Social Srvs: Psychiatric Management Consult Comment: GPU--severe anxiety and some depression, pt is fearful of going home- Expected date of discharge: 05/06/17 Hay Bui Randall Scott, MD, personally performed the services described in this documentation, ascribed by Sabrina Hernández RN in my presence, and it is both accurate and complete 446 .
[2017-05-06] MEDS ORDERED: ASPIRIN CHEW 81 MG TABLET PO SCH (15:00)
[2017-05-07] MEDS ORDERED: hydroCHLOROthiazide 12.5 MG CAPSULE PO SCH (09:00)
[2017-05-07] MEDS ORDERED: LISINOPRIL 5 MG TABLET PO SCH (09:00)
== END 2017-05-06 15:50 | DRG 282 ==
LOC: EDUNIT# → EDBD → N.ED 16:20 → N.EDINP 16:43 → N.TELES 19:03
PROVIDERS: ADMIT Internal Medicine Cardiovascular Disease; ATTEND Internal Medicine Cardiovascular Disease

== ENCOUNTER 2020-10-25 07:21 | Inpatient (IN) ==
[2020-10-18 12:40] LABS: Basophils % 0.3 % (0.0-0.8); Eosinophils # 0.2 10*3/uL (0.0-0.87); Eosinophils % 2.5 % (0.00-10.9); Hematocrit 42.2 VOL% (35.7-47.0); Hemoglobin 14.1 GM/DL (12.0-16.0); Immature Granulocytes % 0.3 %; Immature Granulocytes Absolute 0.02 #; Lymphocytes # 1.7 10*3/uL (1.4-4.0); Lymphocytes % 22.3 % (21.3-54.2); Mean Corpuscular HGB Conc 33.4 GM/DL (32-36); Mean Platelet Volume 9.7 FL (9.6-12.0); Monocytes % 8.4 % (1.7-12.7); Neutrophils % 66.2 % (38.7-73.9); Platelet Count 206 T/CUMM (130-400); Red Blood Count 4.69 MC/CUMM (3.8-5.5); Red Cell Distribution Width 12.7 % (9.3-17.3); White Blood Count 7.5 T/CUMM (4-12)
[2020-10-18 12:59] LABS: Albumin 3.7 G/DL (3.4-5.0); Bilirubin,Total 0.8 MG/DL (0.2-1.0); Calcium 8.9 MG/DL (8.5-10.1); Osmolality,Calculated 278.7 MOS/KG (273-304)
[~2020-10-25 07:21] MED LIST: HEPARIN/NACL 0.9% 2 UNITS/ML 500 ML IV ONE; NITROGLYCERIN DRIP 50 MG/250 ML BOTTLE IV ONE; PHENYLEPHRINE DRIP 20 MG/250 ML PREMIX IV ONE
[2020-10-25] MEDS ORDERED: ceFAZolin 1,000 MG VIAL ONE (07:57)
[2020-10-25] MEDS ORDERED: MIDAZOLAM 2 MG/2 ML VIAL ONE (08:11)
[2020-10-25] MEDS ORDERED: fentaNYL 100 MCG/2 ML VIAL ONE (08:11)
[2020-10-25] MEDS ORDERED: LIDOCAINE 2% 5 ML VIAL ONE (08:16)
[2020-10-25] MEDS ORDERED: ROCURONIUM 50 MG/5 ML VIAL IV ONE (08:16)
[2020-10-25] MEDS ORDERED: propofoL 200 MG/20 ML VIAL IV ONE (08:16)
[2020-10-25] MEDS ORDERED: FAMOTIDINE 20 MG/2 ML VIAL IV ONE (08:18)
[2020-10-25] MEDS ORDERED: HEPARIN 5,000 UNIT/1 ML VIAL ONE (08:23)
[2020-10-25] MEDS ORDERED: LIDOCAINE 1% 20 ML VIAL ONE (08:23)
[2020-10-25] MEDS ORDERED: LACTATED RINGERS 1,000 ML IV SCH ×2 (08:30→10:30)
[2020-10-25] MEDS ORDERED: ePHEDrine 50 MG/ML VIAL ONE (08:59)
[2020-10-25] MEDS ORDERED: GLYCOPYRROLATE 0.4 MG/2 ML VIAL ONE (09:23)
[2020-10-25] MEDS ORDERED: HEPARIN 10,000 UNIT/10 ML VIAL ONE (09:23)
[2020-10-25] MEDS ORDERED: ONDANSETRON 4 MG/2 ML VIAL ONE (09:43)
[2020-10-25] MEDS ORDERED: KETOROLAC 30 MG/1 ML VIAL ONE (09:43)
[2020-10-25] MEDS ORDERED: PROTAMINE SULFATE 50 MG/5 ML VIAL IV ONE (10:03)
[2020-10-25] MEDS ORDERED: SUGAMMADEX 200 MG/2 ML VIAL IV ONE (10:04)
[2020-10-25] MEDS ORDERED: oxyCODONE/ACETAMINOPHEN 5-325 MG TABLET PO PRN ×2 (10:22)
[2020-10-25] MEDS ORDERED: NALOXONE 0.4 MG/ML VIAL IV PRN (10:22)
[2020-10-25] MEDS ORDERED: HYDROmorphone 2 MG/1 ML VIAL IV PRN (10:22)
[2020-10-25] MEDS ORDERED: GLUCAGON 1 MG VIAL IM PRN (10:22)
[2020-10-25] MEDS ORDERED: DEXTROSE 50% 25 GM/50 ML VIAL IV PRN (10:22)
[2020-10-25] MEDS ORDERED: PROMETHAZINE 25 MG/1 ML VIAL IM PRN (10:22)
[2020-10-25] MEDS ORDERED: ONDANSETRON 4 MG/2 ML VIAL IV PRN (10:22)
[2020-10-25] MEDS ORDERED: NITROPRUSSIDE 100 MG in DEXTROSE 5% 250 ML IV SCH (10:30)
[2020-10-25] MEDS ORDERED: PHENYLEPHRINE DRIP 40 MG/250 ML PREMIX IV SCH (10:30)
[2020-10-25] MEDS ORDERED: SEVOFLURANE 1 UNIT/15 MINUTE INH ONE (10:36)
[2020-10-25] MEDS: HYDROmorphone 2 MG/1 ML VIAL IV PRN ×2 (11:47→18:27)
[2020-10-25] MEDS: INSULIN REGULAR 100 UNIT/ML SUBCUT SCH ×3 (13:27→20:33)
[2020-10-25] MEDS: DICYCLOMINE 10 MG CAPSULE PO SCH ×2 (16:00→20:25)
[2020-10-25] MEDS ORDERED: FUROSEMIDE 20 MG/2 ML VIAL IV ONE (18:33)
[2020-10-25] MEDS ORDERED: FUROSEMIDE 40 MG/4 ML VIAL ONE (18:34)
[2020-10-25] MEDS: LOSARTAN 50 MG TABLET PO SCH (20:26)
[2020-10-25] MEDS: ROSUVASTATIN 10 MG TABLET PO SCH (20:26)
[2020-10-25] MEDS: ASPIRIN EC 81 MG TABLET PO SCH (20:26)
[2020-10-25] MEDS: carvediloL 3.125 MG TABLET PO SCH (20:27)
[2020-10-26] MEDS: LEVOTHYROXINE 75 MCG TABLET PO SCH (06:04)
[2020-10-26] MEDS: INSULIN REGULAR 100 UNIT/ML SUBCUT SCH ×4 (07:52→23:46)
[2020-10-26] MEDS: EZETIMIBE 10 MG TABLET PO SCH (08:40)
[2020-10-26] MEDS: CLOPIDOGREL 75 MG TABLET PO SCH (08:40)
[2020-10-26] MEDS: DICYCLOMINE 10 MG CAPSULE PO SCH ×3 (08:40→21:12)
[2020-10-26] MEDS: OMEGA 3 ACID ETHYL ESTERS 1 GM CAPSULE PO SCH (08:40)
[2020-10-26] MEDS: ESCITALOPRAM 10 MG TABLET PO SCH (08:40)
[2020-10-26] MEDS: OMEPRAZOLE ODT 20 MG TABLET PO SCH (08:40)
[2020-10-26] MEDS ORDERED: NON-FORMULARY MEDICATION (Alogliptin 12.5 mg Tablet) PO SCH (09:00)
[2020-10-26] MEDS: amLODIPine 5 MG TABLET PO SCH (09:00)
[2020-10-26] MEDS: carvediloL 3.125 MG TABLET PO SCH ×2 (09:00→21:10)
[2020-10-26] MEDS: LOSARTAN 50 MG TABLET PO SCH ×2 (09:00→21:11)
[2020-10-26] MEDS: metFORMIN 500 MG TABLET PO SCH ×2 (11:05→21:11)
[2020-10-26] MEDS: ASPIRIN EC 81 MG TABLET PO SCH (21:10)
[2020-10-26] MEDS: ROSUVASTATIN 10 MG TABLET PO SCH (21:11)
[2020-10-27] MEDS: LEVOTHYROXINE 75 MCG TABLET PO SCH (06:27)
[2020-10-27] MEDS: INSULIN REGULAR 100 UNIT/ML SUBCUT SCH (08:53)
[2020-10-27] MEDS: OMEGA 3 ACID ETHYL ESTERS 1 GM CAPSULE PO SCH (08:56)
[2020-10-27] MEDS: CLOPIDOGREL 75 MG TABLET PO SCH (08:57)
[2020-10-27] MEDS: amLODIPine 5 MG TABLET PO SCH (08:57)
[2020-10-27] MEDS: metFORMIN 500 MG TABLET PO SCH (08:57)
[2020-10-27] MEDS: ESCITALOPRAM 10 MG TABLET PO SCH (08:57)
[2020-10-27] MEDS: DICYCLOMINE 10 MG CAPSULE PO SCH (08:57)
[2020-10-27] MEDS: OMEPRAZOLE ODT 20 MG TABLET PO SCH (08:57)
[2020-10-27] MEDS: carvediloL 3.125 MG TABLET PO SCH (08:57)
[2020-10-27] MEDS: LOSARTAN 50 MG TABLET PO SCH (08:58)
[2020-10-27] MEDS: EZETIMIBE 10 MG TABLET PO SCH (08:58)
[2020-10-27 09:35] VITALS: BP 102/48
[2020-11-01] MEDS ORDERED: ERGOCALCIFEROL 50,000 UNIT CAPSULE PO SCH (09:00)
== END 2020-10-27 11:10 | disposition home or self-care (01) | DRG 39 ==
LOC: N.OR 07:21 → N.SDSINP 07:23 → N.ICU 10:47 → EDSTATUS 15:15 → N.4E 10-26 18:38
PROVIDERS: ADMIT Surgery; ATTEND Surgery

== ENCOUNTER 2021-01-23 06:56 | Inpatient (IN) ==
[2021-01-16 15:51] LABS: Basophils # 0.1 10*3/uL (0.0-0.2); Basophils % 0.8 % (0.0-0.8); Eosinophils # 0.1 10*3/uL (0.0-0.87); Eosinophils % 1.7 % (0.00-10.9); Hematocrit 38.6 VOL% (35.7-47.0); Hemoglobin 12.6 GM/DL (12.0-16.0); Immature Granulocytes % 0.3 %; Immature Granulocytes Absolute 0.02 #; Lymphocytes # 1.5 10*3/uL (1.4-4.0); Lymphocytes % 22.3 % (21.3-54.2); Mean Corpuscular HGB Conc 32.6 GM/DL (32-36); Mean Platelet Volume 9.3 FL (9.6-12.0); Monocytes % 8.1 % (1.7-12.7); Neutrophils % 66.8 % (38.7-73.9); Platelet Count 276 T/CUMM (130-400); Red Blood Count 4.24 MC/CUMM (3.8-5.5); White Blood Count 6.6 T/CUMM (4-12)
[2021-01-16 16:10] LABS: INR 1.1; PT Patient Result 11.3 SECS (9.8-11.9); Partial Thromboplastin Time 29.7 SECS (23.9-33.8)
[2021-01-16 16:17] LABS: Albumin 3.4 G/DL (3.4-5.0); Bilirubin,Total 0.6 MG/DL (0.2-1.0); Calcium 8.9 MG/DL (8.5-10.1); Osmolality,Calculated 274.1 MOS/KG (273-304); Potassium 3.8 MMOL/L (3.5-5.1); Total Protein 6.6 G/DL (6.4-8.3)
[~2021-01-23 06:56] MED LIST changes: -HEPARIN/NACL 0.9% 2 UNITS/ML 500 ML IV ONE; +LACTATED RINGERS 1,000 ML IV SCH; -NITROGLYCERIN DRIP 50 MG/250 ML BOTTLE IV ONE; -PHENYLEPHRINE DRIP 20 MG/250 ML PREMIX IV ONE; +ceFAZolin 1,000 MG in SYRINGE 1 EACH IV ONE
[2021-01-23] MEDS ORDERED: DIAZEPAM 5 MG TABLET PO ONE (07:18)
[2021-01-23] MEDS ORDERED: FAMOTIDINE 20 MG TABLET PO ONE (07:18)
[2021-01-23] MEDS ORDERED: HEPARIN/NACL 0.9% 2 UNITS/ML 500 ML IV ONE (07:30)
[2021-01-23] MEDS ORDERED: NITROGLYCERIN DRIP 50 MG/250 ML BOTTLE IV ONE (07:30)
[2021-01-23] MEDS ORDERED: PHENYLEPHRINE DRIP 20 MG/250 ML PREMIX IV ONE (07:30)
[2021-01-23] MEDS ORDERED: ROPIVACAINE 0.5% 30 ML VIAL ONE (07:40)
[2021-01-23] MEDS ORDERED: LIDOCAINE 1% 5 ML VIAL ONE (07:40)
[2021-01-23] MEDS ORDERED: DEXMEDETOMIDINE 200 MCG/2 ML VIAL ONE (07:40)
[2021-01-23] MEDS ORDERED: DEXAMETHASONE 4 MG/1 ML VIAL ONE (07:40)
[2021-01-23] MEDS ORDERED: FAMOTIDINE 20 MG/2 ML VIAL IV ONE (07:59)
[2021-01-23] MEDS ORDERED: HEPARIN 5,000 UNIT/1 ML VIAL ONE (08:07)
[2021-01-23] MEDS ORDERED: LIDOCAINE 1% 20 ML VIAL ONE (08:07)
[2021-01-23] MEDS ORDERED: fentaNYL 100 MCG/2 ML VIAL ONE (08:12)
[2021-01-23] MEDS ORDERED: ePHEDrine 50 MG/ML VIAL ONE (09:00)
[2021-01-23] MEDS ORDERED: SEVOFLURANE 1 UNIT/15 MINUTE INH ONE (09:53)
[2021-01-23] MEDS ORDERED: propofoL 200 MG/20 ML VIAL IV ONE (09:54)
[2021-01-23] MEDS ORDERED: ROCURONIUM 50 MG/5 ML VIAL IV ONE (09:55)
[2021-01-23] MEDS ORDERED: NEOSTIGMINE 10 MG/10 ML VIAL ONE (09:55)
[2021-01-23] MEDS ORDERED: LACTATED RINGERS 1,000 ML IV ONE (09:55)
[2021-01-23] MEDS ORDERED: GLYCOPYRROLATE 0.4 MG/2 ML VIAL ONE (09:55)
[2021-01-23] MEDS ORDERED: ONDANSETRON 4 MG/2 ML VIAL ONE (09:55)
[2021-01-23] MEDS ORDERED: PHENYLEPHRINE 1 MG/10 ML SYRINGE IV ONE (09:55)
[2021-01-23] MEDS ORDERED: HYDROmorphone 2 MG/1 ML VIAL IV PRN ×2 (10:19)
[2021-01-23] MEDS ORDERED: DEXTROSE 50% 25 GM/50 ML VIAL IV PRN (10:19)
[2021-01-23] MEDS ORDERED: PROMETHAZINE 25 MG/1 ML VIAL IM PRN (10:19)
[2021-01-23] MEDS ORDERED: ONDANSETRON 4 MG/2 ML VIAL IV PRN (10:19)
[2021-01-23] MEDS ORDERED: oxyCODONE/ACETAMINOPHEN 5-325 MG TABLET PO PRN (10:19)
[2021-01-23] MEDS ORDERED: NALOXONE 0.4 MG/ML VIAL IV PRN (10:19)
[2021-01-23] MEDS ORDERED: GLUCAGON 1 MG VIAL IM PRN (10:19)
[2021-01-23] MEDS ORDERED: PROTAMINE SULFATE 50 MG/5 ML VIAL IV ONE (10:43)
[2021-01-23] MEDS ORDERED: HEPARIN 10,000 UNIT/10 ML VIAL ONE (10:43)
[2021-01-23] MEDS: LACTATED RINGERS 1,000 ML IV SCH ×2 (12:15→22:00)
[2021-01-23] MEDS: PHENYLEPHRINE DRIP 40 MG/250 ML PREMIX IV SCH (12:24)
[2021-01-23] MEDS: NITROPRUSSIDE 100 MG in DEXTROSE 5% 250 ML IV SCH (12:24)
[2021-01-23] MEDS: oxyCODONE/ACETAMINOPHEN 5-325 MG TABLET PO PRN (12:46)
[2021-01-23] MEDS: INSULIN REGULAR 100 UNIT/ML SUBCUT SCH ×2 (12:46→17:37)
[2021-01-23] MEDS: DICYCLOMINE 10 MG CAPSULE PO SCH ×2 (16:33→22:54)
[2021-01-23] MEDS: ROSUVASTATIN 20 MG TABLET PO SCH (18:34)
[2021-01-23] MEDS: LOSARTAN 50 MG TABLET PO SCH (22:02)
[2021-01-23] MEDS: ASPIRIN EC 81 MG TABLET PO SCH (22:54)
[2021-01-24] MEDS: INSULIN REGULAR 100 UNIT/ML SUBCUT SCH ×4 (00:39→20:10)
[2021-01-24] MEDS: carvediloL 6.25 MG TABLET PO SCH ×3 (01:48→19:59)
[2021-01-24] MEDS: oxyCODONE/ACETAMINOPHEN 5-325 MG TABLET PO PRN ×2 (05:17→19:59)
[2021-01-24] MEDS ORDERED: GLUCAGON 1 MG VIAL IM PRN (07:19)
[2021-01-24] MEDS ORDERED: DEXTROSE 50% 25 GM/50 ML VIAL IV PRN (07:19)
[2021-01-24] MEDS: LACTATED RINGERS 1,000 ML IV SCH (07:40)
[2021-01-24] MEDS: LEVOTHYROXINE 75 MCG TABLET PO SCH (08:16)
[2021-01-24] MEDS: LOSARTAN 50 MG TABLET PO SCH (08:55)
[2021-01-24] MEDS ORDERED: CLOPIDOGREL 75 MG TABLET PO SCH (09:00)
[2021-01-24] MEDS: PANTOPRAZOLE 40 MG TABLET PO SCH (09:01)
[2021-01-24] MEDS: ESCITALOPRAM 10 MG TABLET PO SCH (09:02)
[2021-01-24] MEDS: MULTIVITAMIN (OCUVITE) TABLET PO SCH (09:02)
[2021-01-24] MEDS: OMEGA 3 ACID ETHYL ESTERS 1 GM CAPSULE PO SCH (09:02)
[2021-01-24] MEDS: DICYCLOMINE 10 MG CAPSULE PO SCH ×3 (09:03→19:59)
[2021-01-24] MEDS: PHENYLEPHRINE DRIP 40 MG/250 ML PREMIX IV SCH (10:20)
[2021-01-24] MEDS: NITROPRUSSIDE 100 MG in DEXTROSE 5% 250 ML IV SCH (10:21)
[2021-01-24] MEDS ORDERED: NF- (Alogliptin 12.5 mg Tablet) PO SCH (11:17)
[2021-01-24] MEDS: metFORMIN 500 MG TABLET PO SCH ×2 (11:46→19:59)
[2021-01-24] MEDS ORDERED: SODIUM CHLORIDE 0.45% 500 ML IV ONE (13:43)
[2021-01-24] MEDS: ROSUVASTATIN 20 MG TABLET PO SCH (19:59)
[2021-01-24] MEDS: ASPIRIN EC 81 MG TABLET PO SCH (19:59)
[2021-01-25] MEDS: INSULIN REGULAR 100 UNIT/ML SUBCUT SCH ×3 (00:41→14:03)
[2021-01-25] MEDS: LEVOTHYROXINE 75 MCG TABLET PO SCH (06:02)
[2021-01-25] MEDS: MULTIVITAMIN (OCUVITE) TABLET PO SCH (09:09)
[2021-01-25] MEDS: PANTOPRAZOLE 40 MG TABLET PO SCH (09:09)
[2021-01-25] MEDS: ESCITALOPRAM 10 MG TABLET PO SCH (09:09)
[2021-01-25] MEDS: OMEGA 3 ACID ETHYL ESTERS 1 GM CAPSULE PO SCH (09:09)
[2021-01-25] MEDS: metFORMIN 500 MG TABLET PO SCH (09:09)
[2021-01-25] MEDS: DICYCLOMINE 10 MG CAPSULE PO SCH (09:09)
[2021-01-25] MEDS: carvediloL 6.25 MG TABLET PO SCH (09:36)
[2021-01-25 11:51] VITALS: BP 111/48
[2021-01-30] MEDS ORDERED: ERGOCALCIFEROL 50,000 UNIT CAPSULE PO SCH (09:00)
== END 2021-01-25 14:53 | disposition home or self-care (01) | DRG 39 ==
LOC: N.OR 06:56 → N.SDSINP 06:57 → N.ICU 11:37 → EDSTATUS 13:15 → N.4E 01-24 15:35
PROVIDERS: ADMIT Surgery; ATTEND Surgery

== ENCOUNTER 2021-11-17 20:13 | Inpatient (IN) ==
[2021-11-17 23:29] LABS: Basophils % 0.4 % (0.0-0.8); Eosinophils # 0.1 10*3/uL (0.0-0.87); Hematocrit 33.1 VOL% (35.7-47.0); Hemoglobin 10.2 GM/DL (12.0-16.0); Immature Granulocytes % 0.3 %; Immature Granulocytes Absolute 0.02 #; Lymphocytes # 1.9 10*3/uL (1.4-4.0); Lymphocytes % 27.2 % (21.3-54.2); Mean Corpuscular HGB Conc 30.8 GM/DL (32-36); Mean Corpuscular Volume 90.7 FL (87-102); Mean Platelet Volume 9.5 FL (9.6-12.0); Monocytes % 5.3 % (1.7-12.7); Neutrophils % 64.8 % (38.7-73.9); Platelet Count 181 T/CUMM (130-400); Red Blood Count 3.65 MC/CUMM (3.8-5.5); Red Cell Distribution Width 13.7 % (9.3-17.3)
[2021-11-17 23:44] LABS: INR 1.2; PT Patient Result 13.4 SECS (10.5-12.0); Partial Thromboplastin Time 29.5 SECS (23.8-32.1)
[2021-11-17] MEDS ORDERED: SODIUM CHLORIDE 0.9% 1,000 ML IV PRN (23:45)
[2021-11-17] MEDS ORDERED: ZALEPLON 5 MG CAPSULE PO PRN (23:46)
[2021-11-17] MEDS ORDERED: NICOTINE 21 MG/24 HR PATCH TRANSDERM PRN (23:46)
[2021-11-17] MEDS ORDERED: ACETAMINOPHEN 325 MG TABLET PO PRN (23:46)
[2021-11-17] MEDS ORDERED: MORPHINE 2 MG/1 ML SYRINGE IV PRN (23:46)
[2021-11-17] MEDS ORDERED: ONDANSETRON 4 MG/2 ML VIAL IV PRN (23:46)
[2021-11-17] MEDS ORDERED: DEXTROSE 50% 25 GM/50 ML SYRINGE IV PRN (23:46)
[2021-11-17] MEDS ORDERED: GLUCAGON 1 MG VIAL IM PRN (23:46)
[2021-11-17] MEDS ORDERED: guaiFENesin/DM ER 600-30 MG TABLET PO PRN (23:46)
[2021-11-17] MEDS ORDERED: diphenhydrAMINE CAP 25 MG CAPSULE PO PRN (23:46)
[2021-11-17] MEDS ORDERED: hydrALAZINE 20 MG/1 ML VIAL IV PRN (23:46)
[2021-11-17 23:49] LABS: Calcium 8.6 MG/DL (8.5-10.1); Osmolality,Calculated 281.8 MOS/KG (273-304); Potassium 4.5 MMOL/L (3.5-5.1)
[2021-11-18 06:33] LABS: Basophils % 0.3 % (0.0-0.8); Eosinophils # 0.1 10*3/uL (0.0-0.87); Eosinophils % 0.9 % (0.00-10.9); Hematocrit 30.3 VOL% (35.7-47.0); Hemoglobin 9.6 GM/DL (12.0-16.0); Immature Granulocytes % 0.3 %; Immature Granulocytes Absolute 0.02 #; Lymphocytes # 1.8 10*3/uL (1.4-4.0); Lymphocytes % 27.3 % (21.3-54.2); Mean Corpuscular HGB Conc 31.7 GM/DL (32-36); Mean Corpuscular Volume 89.9 FL (87-102); Mean Platelet Volume 9.5 FL (9.6-12.0); Monocytes % 7.4 % (1.7-12.7); Neutrophils % 63.8 % (38.7-73.9); Platelet Count 133 T/CUMM (130-400); Red Blood Count 3.37 MC/CUMM (3.8-5.5); Red Cell Distribution Width 13.6 % (9.3-17.3); White Blood Count 6.5 T/CUMM (4-12)
[2021-11-18] MEDS: LEVOTHYROXINE 75 MCG TABLET PO SCH (06:36)
[2021-11-18 06:58] LABS: Calcium 8.1 MG/DL (8.5-10.1); Osmolality,Calculated 285.5 MOS/KG (273-304); Potassium 4.6 MMOL/L (3.5-5.1)
[2021-11-18] MEDS: INSULIN LISPRO 100 UNIT/ML SUBCUT SCH ×4 (08:49→21:08)
[2021-11-18] MEDS: PANTOPRAZOLE 40 MG TABLET PO SCH (08:49)
[2021-11-18] MEDS: DICYCLOMINE 10 MG CAPSULE PO SCH ×3 (08:49→21:08)
[2021-11-18] MEDS: ESCITALOPRAM 10 MG TABLET PO SCH (08:50)
[2021-11-18] MEDS: OMEGA 3 ACID ETHYL ESTERS 1 GM CAPSULE PO SCH (08:50)
[2021-11-18] MEDS: GABAPENTIN 300 MG CAPSULE PO SCH ×3 (08:50→21:08)
[2021-11-18] MEDS ORDERED: carvediloL 3.125 MG TABLET PO SCH (09:00)
[2021-11-18] MEDS: SODIUM CHLORIDE 0.9% 1,000 ML IV SCH (13:08)
[2021-11-18 15:37] LABS: Bilirubin,Urine Negative (Negative); Blood, Urine Moderate mg/dL (Negative); Glucose,Urine (UA) Negative (Negative); Ketones,Urine Negative (Negative); Mucus,Urine Occasional /LPF (Occasional); Nitrite,Urine Negative (Negative); Protein,Urine Negative; RBC,Urine 1 /HPF (0-4); Squamous Epithelial Cell,Urine Occasional /HPF (0-10); Urine Appearance CLEAR (Clear); Urine Color Straw (Yellow); Urine Urobilinogen < 2.0 EU/DL (<2.0)
[2021-11-18] MEDS: EZETIMIBE 10 MG TABLET PO SCH (21:08)
[2021-11-19] MEDS: LEVOTHYROXINE 75 MCG TABLET PO SCH ×2 (06:07→09:54)
[2021-11-19] MEDS: SODIUM CHLORIDE 0.9% 1,000 ML IV SCH ×2 (07:07→16:26)
[2021-11-19] MEDS: OMEGA 3 ACID ETHYL ESTERS 1 GM CAPSULE PO SCH (09:53)
[2021-11-19] MEDS: GABAPENTIN 300 MG CAPSULE PO SCH ×3 (09:53→21:48)
[2021-11-19] MEDS: PANTOPRAZOLE 40 MG TABLET PO SCH (09:53)
[2021-11-19] MEDS: ESCITALOPRAM 10 MG TABLET PO SCH (09:53)
[2021-11-19] MEDS: DICYCLOMINE 10 MG CAPSULE PO SCH ×3 (09:53→21:48)
[2021-11-19] MEDS: INSULIN LISPRO 100 UNIT/ML SUBCUT SCH ×4 (09:54→22:31)
[2021-11-19] MEDS: EZETIMIBE 10 MG TABLET PO SCH (21:48)
[2021-11-20] MEDS: SODIUM CHLORIDE 0.9% 1,000 ML IV SCH (05:46)
[2021-11-20] MEDS: LEVOTHYROXINE 75 MCG TABLET PO SCH (05:46)
[2021-11-20 07:53] LABS: Basophils % 0.6 % (0.0-0.8); Eosinophils # 0.2 10*3/uL (0.0-0.87); Eosinophils % 3.6 % (0.00-10.9); Hematocrit 31.6 VOL% (35.7-47.0); Immature Granulocytes % 0.2 %; Immature Granulocytes Absolute 0.01 #; Lymphocytes # 1.9 10*3/uL (1.4-4.0); Lymphocytes % 39.7 % (21.3-54.2); Mean Corpuscular HGB Conc 31.6 GM/DL (32-36); Mean Corpuscular Volume 89.5 FL (87-102); Mean Platelet Volume 9.7 FL (9.6-12.0); Monocytes % 9.3 % (1.7-12.7); Neutrophils % 46.6 % (38.7-73.9); Platelet Count 173 T/CUMM (130-400); Red Blood Count 3.53 MC/CUMM (3.8-5.5); Red Cell Distribution Width 14.2 % (9.3-17.3); White Blood Count 4.7 T/CUMM (4-12)
[2021-11-20 08:22] LABS: Calcium 8.7 MG/DL (8.5-10.1); Osmolality,Calculated 282.3 MOS/KG (273-304); Potassium 3.4 MMOL/L (3.5-5.1)
[2021-11-20 08:30] LABS: Anisocytosis 2+; Band Neutrophils 2 % (0-10); Burr Cells Few; Eosinophils 7 % (0-10); Lymphocytes 34 % (20-55); Macrocytosis 1+; Platelet Estimate Normal; Poikilocytosis 1+; Segmented Neutrophils 49 % (50-85); Total Cells Counted 100
[2021-11-20 08:31] LABS: Atypical Lymphocytes Few
[2021-11-20] MEDS ORDERED: POTASSIUM CHLORIDE 20 MEQ TABLET PO ONE (09:23)
[2021-11-20] MEDS: ESCITALOPRAM 10 MG TABLET PO SCH (09:24)
[2021-11-20] MEDS: GABAPENTIN 300 MG CAPSULE PO SCH ×2 (09:24→14:22)
[2021-11-20] MEDS: DICYCLOMINE 10 MG CAPSULE PO SCH ×2 (09:24→14:22)
[2021-11-20] MEDS: PANTOPRAZOLE 40 MG TABLET PO SCH (09:24)
[2021-11-20] MEDS: OMEGA 3 ACID ETHYL ESTERS 1 GM CAPSULE PO SCH (09:24)
[2021-11-20] MEDS: INSULIN LISPRO 100 UNIT/ML SUBCUT SCH ×3 (09:25→16:14)
[2021-11-20 16:04] VITALS: BP 125/49
[2021-11-20] MEDS ORDERED: ROSUVASTATIN 20 MG TABLET PO SCH (21:00)
== END 2021-11-20 16:32 | disposition home or self-care (01) | DRG 813 ==
LOC: N.TELES → SUATTDRO 23:47
PROVIDERS: ADMIT Internal Medicine; ATTEND Hospitalist